=== PATIENT | male | born 1925 | race Caucasian/White ===

== ENCOUNTER 2016-10-30 21:07 | Inpatient (IN) | payer OTHER, MEDICARE ==
[~2016-10-30] VITALS: Ht 170.2 cm; Wt 81.6 kg
[~2016-10-30 21:07] MED LIST: ASPIRIN CHILDRE81 MG PO; BETAMETHASONE D1 CRE TOP; CEFUROXIME AXE500 MG PO; COUMADIN 2.5 M2.5 MG PO; COUMADIN 3 MG TA3 MG PO; COUMADIN 5 MG TA5 MG PO; ENALAPRIL PO; FUROSEMIDE40 M1 PO; HCT PO; HUMALOG 100U100 U/ML SC; HYDROCODONE/ACE1 TAB PO; KLOR-CON 10MEQ10 MEQ PO; LASIX 100M100 MG/10 IV; LASIX40 MG PO; LOPRESSOR 12.12.5 MG PO; LOPRESSOR 25MG25 MG PO; LOVENOX 8080 MG/0.8 SC; LOVENOX80 MG/0.8 SC; MAG-OX 400400 MG PO; MIRALAX17 GM PO; NOVOLOG 10300 UNITS/ SC; NOVOLOG100 U/ML SC; POTASSIUM CHLO10 ME3 PO; PRAVACHOL20 M2 PO; PRAVASTATIN SOD20 MG PO; PREDNISONE 10MG10 M1 PO; PREDNISONE5 M2; PREDNISONE5 MG PO; Prinivil PO; SPIRONOLACTONE50 MG PO; SYNTHROID50 MCG PO; TRADJENTA5 M1 PO; TRADJENTA5 MG PO; VICODIN 300 MG-1 TAB PO; VITAMIN B121000 MCG PO; VOLTAREN GEL1% TOP; WARFARIN SODIU2.5 MG PO; [UNRECOGNIZED DRUG - OTHER] PO
--- NOTE | 2016-10-30 21:11 | ED DYSPNEA/ASTHMA COMPLAINT ---
History of Present Illness General Chief Complaint: Fever Stated Complaint: BIBA FOR FEVER,CHILLS,PRODUCTIVE COUGH Source: family Exam Limitations: physical impairment Vital Signs & Intake/Output Vital Signs & Intake/Output Vital Signs Date Time Temp Pulse Resp B/P Pulse O2 O2 Flow FiO2 Ox Delivery Rate 11/01 0800 99 Room Air 11/01 0800 99.7 86 29 120/80 99 Room Air 11/01 0400 99 Room Air 11/01 0000 98.6 80 21 92/54 95 Room Air 11/01 0000 95 Room Air 10/31 2106 97 Room Air 10/31 2000 93 Room Air 10/31 1906 100.1 10/31 1600 97 Room Air Room Air 10/31 1600 100.2 71 32 104/73 97 Room Air Room Air 10/31 1220 Room Air 10/31 1200 100 Room Air Room Air / 1159 97 Room Air ED Intake and Output / 0000 / 1200 Intake Total 1628 200 Output Total 675 370 Balance 953 -170 Intake, IV 778 200 Intake, Oral 850 Number 1 Bowel Movements Output, Urine 675 370 Patient 180 lb Weight Allergies Coded Allergies: latex (Mild, RASH 12/02/15) Reconcile Medications Aspirin (Children's Aspirin) 81 MG TAB.CHEW 1 TAB PO DAILY HEART Furosemide 40 MG TAB 1.5 TAB PO DAILY DIURETIC (Reported) Levothyroxine (Synthroid) 0.025 MG TAB 1 TAB PO DAILY THYROID (Reported) Linagliptin (Tradjenta) 5 MG TAB 1 TAB PO DAILY DIABETES (Reported) Metoprolol Tartrate (Lopressor) 25 MG TABLET 1 TAB PO BID HEART Potassium Chloride [address] 1 TAB PO DAILY SUPPLEMENT (Reported) Pravastatin Sodium (Pravastatin) 20 MG TAB 1 TAB PO DAILY CHOLESTEROL ( Reported) Prednisone 5 MG TAB 1 TAB PO DAILY SUPPLEMENT (Reported) [Prinivil] 2.5 MG PO DAILY BLOOD PRESSURE 1 TAB DAILY Vitamin B Complex, Iron, And11 (Feogen) (Unknown Strength) SGL (Unknown Dose) PO DAILY SUPPLEMENT (Reported) Warfarin Sodium (Coumadin) 3 MG TAB 1 TAB PO DAILY BLOOD THINNER Triage Nurses Notes Reviewed? yes Onset: Gradual Duration: getting worse Timing: recent history Severity: moderate HPI: PT IS A 89 year old MALE with pmh significant for CHF,chronic A. Fib, history of atrial thrombus, [place] (2012) history of DVT s/p IVC filter (2003) on coumadin, HTN,HLD,pseudogout and NIDDM this history is limited due to Angolan speaking only however family members were present state that he has been feeling sick for the past week and which in the last 24 hours patient is noted to have fever productive cough generalized weakness and fatigue Denies any chest pain, pain, arm pain jaw pain nausea vomiting sore throat shortness of breath. Patient states that his lower extremities are stable. (BRENDA FLORES) Past History Travel History Traveled to [place] past 21 day No Medical History Any Pertinent Medical History? 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 Hx Contributory? No (BRENDA FLORES) Review of Systems Review of Systems Constitutional: Reports: no symptoms, see HPI, chills, malaise. EENTM: Reports: no symptoms. Respiratory: Reports: see HPI, cough. Cardiovascular: Reports: see HPI. Denies: chest pain. GI: Reports: no symptoms. Genitourinary: Reports: no symptoms. Musculoskeletal: Reports: no symptoms. Skin: Reports: no symptoms. Neurological/Psychological: Reports: no symptoms. Hematologic/Endocrine: Reports: no symptoms. Immunologic/Allergic: Reports: no symptoms. All Other Systems: Reviewed and Negative (BRENDA FLORES) Physical Exam Physical Exam General Appearance: no apparent distress, comfortable Respiratory: chest non-tender, no respiratory distress, rhonchi Comments: Well-developed well-nourished person in no acute distress HEENT: Normal EENT exam, Neck: Supple, no lymphadenopathy, normal range of motion without pain or tenderness Back: Nontender, no CVA tenderness Cardiovascular: IRRegular rate and rhythms no murmurs rubs or gallops, normal JVP Abdomen: Soft, nontender nondistended, no appreciable organomegaly. Normal bowel sounds. No ascites Extremity: +2 bilateral lower extremity pitting edema, no calf tenderness to palpation, normal and equal pulses. Neuro: Alert oriented motor sensory normal, cranial nerves II through XII grossly intact. Skin: No appreciable rash on exposed skin, skin is warm and dry. Psych: Mood and affect is normal, memory and judgment is normal. Core Measures ACS in differential dx? Yes Severe Sepsis Present: Yes BC x2: Yes Lactic Acid x2: Yes IV ABX Broad Spectrum: Yes NS/LR Started: Yes Septic Shock Present: Yes BC x2: Yes Lactic Acid: Yes IV ABX Broad Spectrum: Yes Focused Exam Completed: Yes NS/LR 30ml/kg w/in 3hrs: Yes (KEIRY ARTIS,BRENDA) Progress Differential Diagnosis: asthma, AMI, bronchitis, costochondritis, CHF, COPD, musculoskeletal pain, pericarditis, pulmonary embolism, pneumonia, pneumothorax, rib fracture, unstable angina Plan of Care: Orders Procedure Date/time Status PROTHROMBIN TIME 11/02 0500 Active ICU LAB BUNDLE 11/02 0500 Active CBC WITHOUT DIFFERENTIAL 11/02 0500 Active XRY-PORTABLE CHEST XRAY 11/01 0826 Active PROTHROMBIN TIME 11/01 0500 Complete PT Evaluate & Treat 11/01 UNK Active RT: Evaluation 10/31 1158 Active AEROSOL CHG 10/31 UNK Complete THERAPIST ORDERS 10/31 UNK Complete Current Medications Sig/Kenia Start time Last Medication Dose Stop Time Status Admin Cefuroxime Sodium 250 MG Q12 11/02 1000 AC (Ceftin) Metoprolol Tartrate 2.5 MG ONCE ONE 11/01 1015 UNVr (Lopressor) 11/01 1016 Metoprolol Tartrate 12.5 MG BID 11/01 1000 UNVr (Lopressor) Prednisone 20 MG DAILY 11/01 1000 AC 11/03 1001 Guaifenesin 10 ML Q6P PRN 10/31 0245 AC (Robitussin) Laboratory Tests 11/01/16 0420: Anion Gap 7, Estimated GFR > 60, Glucose 103 H, Calcium 8.6, Phosphorus 2.7, Magnesium 1.9, Total Bilirubin 0.8, AST 48, ALT 63, Albumin 2.8 L, PT 38.2 H, INR 3.69 H, CBC w Diff NO MAN DIFF REQ, RBC 3.53 L, MCV 96.1 H, MCH 32.1 H, RDW 15.0 H, MPV 9.3, Gran % 77.2 H, Lymphocytes % 13.8 L, Monocytes % 7.4, Eosinophils % 1.2, Basophils % 0.4, Absolute Granulocytes 4.2, Absolute Lymphocytes 0.8 L, Absolute Monocytes 0.4, Absolute Eosinophils 0.1, Absolute Basophils 0, PUBS MCHC 33.4 10/31/16 1115: Troponin I 0.68 *H Microbiology 10/31 1005 LOWER RESP: Respiratory Culture - RES 10/31 1005 LOWER RESP: Gram Stain - RES Due to history of present illness and exam findings patient has concerns of upper respiratory infection-bronchitis. Patient noted to have fever lactic acidosis and his rhonchi noted on exam patient was given IV antibiotics. It is noted through previous labs the patient has a chronically elevated troponin Blood cultures pending. Patient's last echocardiogram was April 2015 noted to be 45-50% EF patient was given 1 L of IV fluid for hypotension noted in the ER Patient still had no response of hypotension in which he was administered 2 peripheral line IV fluid resuscitation Even though patient does have a history of CHF blood pressure improvement was imperative at this point however patient had no response of hypotension in which a central line then was placed. I discussed risk and benefit with son who signed consent form. I placed central line to the right femoral vein with no complications. DISCUSSED ADMISSION WITH DR. MARTIN WHO EVALUATED PT (KEIRY ARTIS,BRENDA) Diagnostic Imaging: Viewed by Me: Radiology Read. Radiology Impression: SEE COMMENTS Initial ED EKG: AFIB 100 BPM MULTIFORM VENTRICULAR PREMATURE COMPLEX, LEFT BUNDLE BRANCH BLOCK Comments: PATIENT: YESSY HERNANDEZ PRESENT AGE: 89 PATIENT ACCOUNT NO: [id number] : [birth year] LOCATION: [facility] ORDERING PHYSICIAN: BRENDA ARTIS SERVICE DATE: 10/30/16 EXAM TYPE: RAD - XRY-CHEST XRAY, PA AND LATERAL EXAMINATION: XR CHEST CLINICAL INFORMATION: Shortness of breath. Cough, fever. COMPARISON: Chest x-ray 05/01/2015. TECHNIQUE: 2 views of the chest were obtained. FINDINGS: Heart size is enlarged. There is calcification of the thoracic aorta. Lung volume is low. This accentuates crowding of the bronchovascular markings which are mildly prominent. The prominence of the vessels is less than was seen on the prior chest x-ray of 05/01/2015. Could be mild congestive heart failure. Haziness at the right lung base with blunting of the posterior costophrenic angle consistent with a small right pleural effusion. No dense consolidation. Multilevel degenerative change of the dorsal spine. IMPRESSION: 1. Low lung volume with prominence of the central hilar vessels. Could be mild congestive heart failure. 2. Small right pleural effusion. 3. No dense consolidation. (BRENDA FLORES) ED Sepsis Exam Date of Focused Sepsis Exam: 10/30/16 Time of Focused Sepsis Exam: 2326 Sepsis Cardiac Exam: AFIB Sepsis Resp Exam: Ronchi Sepsis Cap Refill Exam: <2 Sec Sepsis Peripheral Pulse Exam: Normal Sepsis Peripheral Pulse Location: Radial Sepsis Skin Color Exam: Normal for Ethnicity Skin Temp/Moisture Exam: Warm/Dry (BRENDA FLORES) Departure Departure Disposition: STILL A PATIENT Condition: Critical Clinical Impression Primary Impression: Bronchitis Secondary Impressions: CHF (congestive heart failure), Septic shock Referrals: JULIETH NEW MD (PCP/Family) Departure Forms: Customer Survey General Discharge Information Admission Note Spoke With: PAUL CHAPMAN MD Documentation of Exam: Documentation of any treatments & extenuating circumstances including Concerns Regarding Discharge (functional status, medication knowledge or non-compliance, living conditions, etc.) that warrant an admission rather than observation: [ Discussed patient with Dr. Chapman who agrees with ICU admission for concerns of bronchitis and CHF exacerbation. Patient requires IV antibiotics, IV fluid resuscitation repeat labs, blood cultures currently pending and IV diuresis. Outpatient treatment at this time would be medically harmful.] (BRENDA FLORES) PA/BASKET MENDER Co-Sign Statement Statement: ED Attending supervision documentation- [X] I saw and evaluated the patient. I have also reviewed all the pertinent lab results and diagnostic results. I agree with the findings and the plan of care as documented in the PA's/BASKET MENDER's documentation. [X] I have reviewed the ED Record and agree with the PA's/BASKET MENDER's documentation. [] Additions or exceptions (if any) to the PAs/BASKET MENDER's note and plan are summarized below: [] (MARIO DALTON,YOUSIF Andujar) Procedures Central Line Central Line Lumen: triple Central Line Procedure: Yes: bentadine prep?, sterile drapes applied, sterile dressing applied. Central Line Position: femoral (R) Anesthesia: lidocaine 1% CC's of Anesthesia: 10 Complications: none Central Line Post Position: sutured, good blood return Progress: Patient tolerated central line placement well (BRENDA FLORES) Critical Care Note Critical Care Note Critical Care Time: 75-104 min (BRENDA FLORES) angle consistent with a small right pleural effusion. No dense consolidation. Multilevel degenerative change of the dorsal spine. IMPRESSION: 1. Low lung volume with prominence of the central hilar vessels. Could be mild congestive heart failure. 2. Small right pleural effusion. 3. No dense consolidation. (BRENDA FLORES) ED Sepsis Exam Date of Focused Sepsis Exam: 10/30/16 Time of Focused Sepsis Exam: 2326 Sepsis Cardiac Exam: AFIB Sepsis Resp Exam: Ronchi Sepsis Cap Refill Exam: <2 Sec Sepsis Peripheral Pulse Exam: Normal Sepsis Peripheral Pulse Location: Radial Sepsis Skin Color Exam: Normal for Ethnicity Skin Temp/Moisture Exam: Warm/Dry (BRENDA FLORES) Departure Departure Disposition: STILL A PATIENT Condition: Stable Clinical Impression Primary Impression: Bronchitis Secondary Impressions: CHF (congestive heart failure), Septic shock Referrals: JULIETH NEW MD (PCP/Family) Departure Forms: Customer Survey General Discharge Information Admission Note Spoke With: PAUL CHAPMAN MD Documentation of Exam: Documentation of any treatments & extenuating circumstances including Concerns Regarding Discharge (functional status, medication knowledge or non-compliance, living conditions, etc.) that warrant an admission rather than observation: [ Discussed patient with Dr. Chapman who agrees with ICU admission for concerns of bronchitis and CHF exacerbation. Patient requires IV antibiotics, IV fluid resuscitation repeat labs, blood cultures currently pending and IV diuresis. Outpatient treatment at this time would be medically harmful.] (BRENDA FLORES) PA/BASKET MENDER Co-Sign Statement Statement: ED Attending supervision documentation- [X] I saw and evaluated the patient. I have also reviewed all the pertinent lab results and diagnostic results. I agree with the findings and the plan of care as documented in the PA's/BASKET MENDER's documentation. [X] I have reviewed the ED Record and agree with the PA's/BASKET MENDER's documentation. [] Additions or exceptions (if any) to the PAs/BASKET MENDER's note and plan are summarized below: [] (MARIO DALTON,YOUSIF Andujar) Procedures Central Line Central Line Lumen: triple Central Line Procedure: Yes: bentadine prep?, sterile drapes applied, sterile dressing applied. Central Line Position: femoral (R) Anesthesia: lidocaine 1% CC's of Anesthesia: 10 Complications: none Central Line Post Position: sutured, good blood return Progress: Patient tolerated central line placement well (BRENDA FLORES) Critical Care Note Critical Care Note Critical Care Time: 30-74 min (BRENDA FLORES)
--- NOTE | 2016-10-30 21:20 | NUR ---
PT BIBA FROM HOME. PER EMS, PT HAS BEEN EXPERIENCING FEVER AND CHILLS X1 WEEK. PT HAS HX OF CHF AND +4 PEDAL EDEMA WHICH IS BASELINE. UPON ED ARRIVAL, PT ALERT AND ORIENTED. NO SOB NOTED, PT DENIES PAIN. TEMP 100.2 AND PT HAS A PRODUCTIVE COUGH. PT PLACED ON HEART MONITOR. CHANDRA RICCI AT BEDSIDE FOR EVAL. PT IS PORTUGESE SPEAKING, FAMILY REMAINS AT BEDSIDE.
[2016-10-30 21:40] LABS: ABSOLUTE BASOPHIL COUNT 0 /CUMM (0.0-0.2); ABSOLUTE EOSINOPHIL COUNT 0 /CUMM (0.0-0.7); ABSOLUTE GRANULOCYTE CT 5.6 /CUMM (1.4-6.5); ABSOLUTE LYMPH COUNT 0.5 /CUMM (1.2-3.4); ABSOLUTE MONOCYTE COUNT 0.4 /CUMM (0.10-0.60); BASOPHIL % 0.1 % (0.0-2.0); EOSINOPHIL % 0.1 % (0-5); MEAN CORPUSCULAR HGB 31.8 PG (27.0-31.0); MEAN CORPUSCULAR HGB CONC 33.1 G/DL (33.0-37.0); MEAN CORPUSCULAR VOLUME 96.3 FL (80.0-94.0); MEAN PLATELET VOLUME 8.8 FL (7.4-10.4); PLATELET COUNT 95 /CUMM (130-400); RBC DISTRIBUTION WIDTH 14.7 % (11.5-14.5); RED BLOOD CELL CT 3.74 /CUMM (4.70-6.10); WHITE BLOOD CELL COUNT 6.5 /CUMM (4.8-10.8)
[2016-10-30 21:48] LABS: PT 28.7 SEC (9.4-12.5); PTT 32 SEC (25-37)
--- NOTE | 2016-10-30 21:51 | NUR ---
LABS DRAWN AND SENT BY THIS MST (BLUE,2 SST,LAV,CAPONE,1ST SET OF B/C)
[2016-10-30 21:54] LABS: GRANULOCYTE % 86.2 % (42.2-75.2)
--- NOTE | 2016-10-30 22:00 | NUR ---
PT TAKEN TO XRAY AT THIS TIME VIA STRETCHER.
--- NOTE | 2016-10-30 22:17 | NUR ---
CRITICAL TEST RESULTS [id number] LOVE HERNANDEZIO 89 M TESTS AND RESULTS: TROPONIN 0.44 Results received and read back by: YVON ARCEO Results received date and time: 10/30/16 2376 The following provider was notified of the results, and read the results back: CHANDRA RICCI Notified date and time: 10/30/16 at 2213
--- NOTE | 2016-10-30 22:25 | NUR ---
INFLUENZA SWAB SENT TO LAB. CHANDRA RICCI AT BEDSIDE.
--- NOTE | 2016-10-30 22:31 | RADIOLOGY REPORT ---
EXAMINATION: XR CHEST CLINICAL INFORMATION: Shortness of breath. Cough, fever. COMPARISON: Chest x-ray 05/01/2015. TECHNIQUE: 2 views of the chest were obtained. FINDINGS: Heart size is enlarged. There is calcification of the thoracic aorta. Lung volume is low. This accentuates crowding of the bronchovascular markings which are mildly prominent. The prominence of the vessels is less than was seen on the prior chest x-ray of 05/01/2015. Could be mild congestive heart failure. Haziness at the right lung base with blunting of the posterior costophrenic angle consistent with a small right pleural effusion. No dense consolidation. Multilevel degenerative change of the dorsal spine. IMPRESSION: 1. Low lung volume with prominence of the central hilar vessels. Could be mild congestive heart failure. 2. Small right pleural effusion. 3. No dense consolidation.
--- NOTE | 2016-10-30 23:35 | NUR ---
MANUAL BP 88/50. CHANDRA RICCI AWARE. HOLDING OFF ON ADMINISTERING LASIX AT THIS TIME.
--- NOTE | 2016-10-31 00:33 | NUR ---
MANUAL BP 76/38. PA KEIRY AWARE.
--- NOTE | 2016-10-31 01:18 | NUR ---
PT'S BLOOD DRAWN LACTIC AT 0116 AND SENT TO LAB
--- NOTE | 2016-10-31 01:42 | NUR ---
CHANDRA RICCI AT BEDSIDE FOR CENTRAL LINE ESTABLISHMENT.
--- NOTE | 2016-10-31 01:49 | NUR ---
DR MARTIN AT BEDSIDE. CHANDRA RICCI REMAINS AT BEDSIDE.
--- NOTE | 2016-10-31 02:00 | NUR ---
CENTRAL LINE ESTABLISHED IN [place] BY CHANDRA RICCI.
--- NOTE | 2016-10-31 02:29 | History & Physical ---
See Addendum MANDIE DALTONLORETTA 10/31/16 0228: General Information and HPI History of Present Illness: 89-year-old man with past medical history significant for congestive heart failure, atrial fibrillation, and myocardial infarction, seen for evaluation of fever, chills, and reductive cough since Saturday (10/27/16). Patient is mainly Greek speaking and is unable to communicate. His son and power of arson investigator Michi is present at bedside offering translation in addition to offering collateral information about his father. Patient has reportedly been feeling feverish with chills and an associated productive cough of yellow/ bloody sputum over the past few days but otherwise has felt fine with no decrease in his activity level. Over the past 24 hours patient has been viewed by family members to have gotten acutely worse with generalized fatigue, decreased oral intake, and weakness and new sore throat. Patient was taken to the [facility] ED for further evaluation. Presently patient feels well but admits to persistent fever, chills, new headache but otherwise denies any blurred/double vision, dizziness/ lightheadedness, chest pain, palpitations, shortness of breath, nausea, vomiting , diarrhea. PMHx: Congestive heart failure attending CHF clinic, atrial fibrillation, DVT/PE status post IVC filter on Coumadin, myocardial infarction (2012), hypertension, hyperlipidemia, pseudogout, [id number] diabetes mellitus Allergies/Medications Allergies: Coded Allergies: latex (Mild, RASH 12/02/15) Past History Travel History Traveled to [place] past 21 day No Medical History Neurological: NONE EENT: NONE Cardiovascular: AFIB, hypertension Respiratory: CHF/FLUID Gastrointestinal: NONE Hepatic: NONE Renal: NONE Musculoskeletal: osteoarthritis Psychiatric: NONE Endocrine: diabetes Blood Disorders: DVT, PE Cancer(s): NONE MATERIAL MAN/Reproductive: NONE Other Medical Hx: Multiple DVT history History of MRSA: No History of VRE: No History of CDIFF: No Surgical History Surgical History: MARITZA FILTER Past Family/Social History Family History Relations & Conditions if any not significant DAUGHTER (SEIZURE). Psychosocial History Who Do You Live With? spouse Services at Home: Nursing ETOH Use: denies use Illicit Drug Use: denies illicit drug use Functional Ability ADLs Independent: dressing, eating, toileting, bathing. Ambulation: cane, walker Review of Systems Review of Systems Constitutional: Reports: see HPI. Exam & Diagnostic Data Last 24 Hrs of Vital Signs/I&O Vital Signs Date Time Temp Pulse Resp B/P Pulse O2 O2 Flow FiO2 Ox Delivery Rate 10/31 0432 95 Room Air 10/31 0345 98.4 64 16 78/48 95 Room Air 10/31 0241 66 18 76/50 08 0112 80/48 08 0033 76/38 10/30 2334 87 88/50 10/30 2213 99.6 100 18 96/58 96 Room Air 10/30 2155 100.2 10/30 2113 100.2 73 18 106/56 94 Room Air Intake & Output 10/31 0800 10/31 0000 10/30 1600 Intake Total 0 Output Total Balance 0 Intake, Oral 0 Patient 81.647 kg 79.379 kg Weight Physical Exam General Appearance Alert, Cooperative, Mild Distress Skin Chronic lower extremity skin changes HEENT Atraumatic, PERRLA, EOMI, Mucous Membr. moist/pink Neck Supple, +2 Carotid Pulse wo Bruit, Elevated JVD Cardiovascular Normal S1, Normal S2, Irregular rate Lungs Extensive rhonchi with bibasilar crackles Abdomen Normal Bowel Sounds, Soft, No Tenderness, No Hepatospenomegaly, No Masses Neurological Normal Tone, Cranial Nerves 3-12 NL Extremities 4+ bilateral lower extremity edema Vascular Normal Pulses, Pulses Symmetrical Last 24 Hrs of Labs/Gregorio: Laboratory Tests 10/31/16 0440: Anion Gap 9, Estimated GFR 52 L, Glucose 115 H, Calcium 7.9 L, Phosphorus 3.1 , Magnesium 1.7, Total Bilirubin 0.7, AST 73 H, ALT 72, Troponin I 0.88 *H, Albumin 2.9 L, Cortisol AM Sample Pending, PT 33.4 H, INR 3.22 H, CBC w Diff NO MAN DIFF REQ, RBC 3.56 L, MCV 96.9 H, MCH 32.5 H, RDW 14.6 H, MPV 9.0, Gran % 78.6 H, Lymphocytes % 13.3 L, Monocytes % 7.7, Eosinophils % 0.1, Basophils % 0.3, Absolute Granulocytes 5.5, Absolute Lymphocytes 0.9 L, Absolute Monocytes 0.5, Absolute Eosinophils 0, Absolute Basophils 0, PUBS MCHC 33.6 10/31/16 0256: Urine Color YEL, Urine Clarity CLEAR, Urine pH 6.0, Ur Specific [place] 1.015, Urine Protein NEG, Urine Ketones NEG, Urine Nitrite NEG, Urine Bilirubin NEG, Urine Urobilinogen 0.2, Ur Leukocyte Esterase NEG, Ur Microscopic EXAM NOT REQUIRED, Urine Hemoglobin NEG, Urine Glucose NEG 10/31/16 0256: Ur Random Creatinine 79.2, Ur Random Sodium 23 L, Ur Random Potassium 46.3, Fraction Sodium Excret 0.3 10/31/16 0116: Lactic Acid 1.2 10/30/162126: Anion Gap 11, Estimated GFR 44 L, BUN/Creatinine Ratio 22.7, Glucose 219 H, Lactic Acid 2.6 H, Calcium 8.9, Total Bilirubin 0.8, AST 47, ALT 54, Alkaline Phosphatase 61, Troponin I 0.44 *H, Zid-R-Mvfhawsubup Pept 9550 H, Total Protein 5.5 L, Albumin 3.4 L, Globulin 2.1, Albumin/Globulin Ratio 1.6, TSH 2.110, Free T4 1.81, PT 28.7 H, INR 2.76 H, APTT 32, CBC w Diff NO MAN DIFF REQ, RBC 3.74 L, MCV 96.3 H, MCH 31.8 H, RDW 14.7 H, MPV 8.8, Gran % 86.2 H , Lymphocytes % 8.2 L, Monocytes % 5.4, Eosinophils % 0.1, Basophils % 0.1, Absolute Granulocytes 5.6, Absolute Lymphocytes 0.5 L, Absolute Monocytes 0.4, Absolute Eosinophils 0, Absolute Basophils 0, PUBS MCHC 33.1 Microbiology 10/31 0500 UPPER RESP: Surveillance Culture - COLB 10/31 499 GI: Surveillance Culture - COLB 11/01 255 URINE ROUT: Legionella Antigen - COMP 11/01 255 URINE ROUT: Streptococcus pneumoniae Antigen (M - COMP 10/30 2214 NASOPHARYN: Influenza Virus A & B Rapid Smear - COMP 10/31 2151 BLOOD: Blood Culture - RECD 10/30 2126 BLOOD: Blood Culture - RECD 10/30 2113 LOWER RESP: Respiratory Culture - COLB 10/30 2113 LOWER RESP: Gram Stain - COLB Diagnostic Data EKG Results Atrial Fibrillation HR 100 ND 128 QTc 485 LBBB CXR Results IMPRESSION: 1. Low lung volume with prominence of the central hilar vessels. Could be mild congestive heart failure. 2. Small right pleural effusion. 3. No dense consolidation. Assessment/Plan Assessment: 89-year-old man with multiple medical problems seen for evaluation of fever, chills, productive cough since Saturday with new weakness/malaise/sore throat in the past 24 hours. Vital signs on initial evaluation demonstrate temp 100.2, HR 73, RR 18, BP 106/ 56, O2 94% on room air. Physical examination demonstrates an elderly man in mild distress with extensive rhonchi and bibasilar crackles with jugular venous distention and 4+ bilateral lower extremity edema. Lab work was remarkable for WBC 6.5, Hgb/HCT 11.9/36.0, sodium 134, potassium 4.0, BUN/ creatinine 34/1.5, glucose 219, lactic acid 2.6, troponin 0.44, LFTs within normal limits, BNP 9550, TSH 2.110, free T4 1 0.81. Chest x-ray demonstrates low lung volumes with prominence of the central hilar vessels possibly suggestive of mild congestive heart failure with a small right pleural effusion and no dense consolidation. EKG demonstrates atrial fibrillation with left bundle branch block. Acute bronchitis with septic shock/congestive heart failure/elevated troponin Patient meets criteria for sepsis with tachycardia, tachypnea and reported fever. Chest x-ray and physical examination suggest source of infection localized to the upper airway. Lactic acid elevated to 2.6. Patient received 4 L of normal saline intravenous fluid resuscitation and remained persistently hypotensive for which a femoral triple-lumen catheter was placed. Azithromycin and ceftriaxone were given in the ED after cultures were taken. Legionella/ strep/rapid flu negative. Troponins are chronically elevated. -Intensive care unit -Monitor vital signs, maintain systolic blood pressure > 90 -Strict ins and outs, daily weights -Monitor fluid volume status given history of CHF -Trend lactic acid until normal -Trend troponin/EKG -Echocardiogram -Azithromycin 500 mg IV daily -Ceftriaxone 1 g IV daily -Guaifenesin 10 mL by mouth every 6 hours as needed for cough -Blood/urine cultures -Cardiology consult with Dr. Ventura in morning -Confirm CMR in morning -Follow-up bilateral lower extremity ultrasound Dcg-osniclq-pvwoqizmu diabetes mellitus -Accu-Cheks 3 times a day before meals/at bedtime -Hold oral hypoglycemics -NovoLog sliding scale insulin Hyperlipidemia-pravastatin 20 mg by mouth daily Hypertension-hold blood pressure medications until stable Coronary artery disease-Aspirin 81 mg by mouth daily Hypothyroidism-levothyroxin 25 MCG by mouth daily History of DVT/PE-daily INR, dose Coumadin accordingly Pain plan-acetaminophen Diet-diabetic diet DVT prophylaxis-on Coumadin CODE STATUS-full code As Ranked By This Provider Problem List: 1. Sepsis 2. Bronchitis 3. Septic shock Core Measures/Miscellaneous Acute Coronary Syndrome ACS Diagnosis: No Cerebrovascular Accident CVA/TIA Diagnosis: No Congestive Heart Failure CHF Diagnosis: No Venous Thromboembolism VTE Risk Factors: Acute medical illness, Age > 40, CHF or Resp failure No [facility] VTE prophylaxis d/t: LE Edema No VTE Pharm Prophylaxis d/t: No contraindications VTE Diagnosis: No VTE Type: NONE VTE Confirmed by (Test): NONE Severe Sepsis Severe Sepsis Present: Yes BC x2: Yes Lactic Acid x2: Yes IV ABX Broad Spectrum: Yes NS/LR Started: Yes Septic Shock Septic Shock Present: Yes BC x2: Yes Lactic Acid: Yes IV ABX Broad Spectrum: Yes Focused Exam Completed: Yes NS/LR 30ml/kg w/in 3hrs: Yes IV Vasopressors started: Yes Miscellaneous Documentation Attending Case Discussed With: OBI VENTURA MD Primary Care Physician: JULIETH NEW MD Patient sees these Specialists MD Obi Gomes MD Dr. Shonda of [place] (PCP) Level of Patient Care: Critical Care (CRI) Consults Needed: Consulting Specialty: Cardiology SAYDA GUZMAN 10/31/16 0552: General Information and HPI Allergies/Medications Home Med list Furosemide 40 MG TABLET 1 TAB PO BID FLUID RETENTION (Reported) Levothyroxine Sodium (Synthroid) 50 MCG TABLET 1 TAB PO DAILY THYROID PROBLEMS (Reported) Linagliptin (Tradjenta) 5 MG TAB 1 TAB PO DAILY DIABETES (Reported) Metoprolol Tartrate 25 MG TABLET 0.5 TAB PO BID HEART HEALTH (Reported) Potassium Chloride [address] 1 TAB PO DAILY SUPPLEMENT (Reported) Pravastatin Sodium (Pravastatin) 20 MG TAB 1 TAB PO DAILY CHOLESTEROL ( Reported) Prednisone 5 MG TAB 1 TAB PO DAILY SUPPLEMENT (Reported) Prednisone 5 MG TABLET 0 PO DAILY ANTI-INFLAMMATORY On Take 11/04-11/05 4 tabs per day 11/06-11/08 2 tabs per day 11/09- 1 tab per day Then Continue 1 tab per day [Prinivil] 2.5 MG PO DAILY BLOOD PRESSURE 1 TAB DAILY Vitamin B Complex, Iron, And11 (Feogen) (Unknown Strength) SGL (Unknown Dose) PO DAILY SUPPLEMENT (Reported) Warfarin Sodium (Coumadin) 5 MG TABLET 1 TAB PO SAT BLOOD THINNER (Reported) Warfarin Sodium (Coumadin) 5 MG TABLET 1 TAB PO QSUN BLOOD THINNER (Reported) Warfarin Sodium (Coumadin) 2.5 MG TABLET 1 TAB PO Saturday BLOOD THINNER (Reported) Resident Review Statement Resident Statement: examined this patient, discussed with internetworking technician, amended to note Other Findings: 89-year-old man with past medical history of CHF,,afib, dvt/pe with IVC filter chronic leg swelling, hyperlipidemia, hypertension, diabetes,Pseudgout, Hypothyroidism, was brought by ambulance by his son with chief complaint of not feeling well, weak, coughing and fever and chills. Patient is a poor to give this pain is gentleman and information was translated and also obtained from his son. Port having cough and shortness of breath since Saturday with exertional dysnea, got worse today to the point that patient was not been able to walk in addition to having fever and chills and blood tinged sputum. Patient denies any chest pain, nausea, vomiting, urinary symptoms, diarrhea, constipation, abdominal pain. He does report of sore throat and patient's son was having positive for strep throat treated with antibiotic. In the ED patient was noted to have hypotension and 4 L of normal saline was infused however patient blood pressure was a still under 90 and femoral line was placed and patient was supposed to put on low-dose Levophed however his blood pressure increased to 100 without being on pressors. Details of vital signs are noted above. Physical exam patient was alert and oriented possible JVD Lungs bilateral rhonchi Heart S1 and S2 normal abdomen Nontender ext severe bilateral edema with varices, No significant sign of cellulitis Initially possible 2.5 and subsequently getting normalized, cr 1.5, Troponig 0.44(always elevated in our lab records), hg 11.9, BNP 9950, INR 2.76,PLT 94 ( last time 104) Negative for rapid flu EKG Atrial Fibrillation HR 100 ND 128 QTc 485 LBBB CXR 1. Low lung vo lume with prominence of the central hilar vessels. Could be mild congestive heart failure. 2. Small right pleural effusion. 3. No dense consolidation. Assessment and plan #severe Sepsis due to pneumonia/bronchitis/NOELLE * Admit to ICU * Keep O2 saturation over 92% * Put the patient on IV ceftriaxone and IV azithromycin * Blood cultures 2, sputum culture * Robusstasin for cough * Check urine Legionella and strep antigen * Restart levophed if the patient blood pressure drops below 90 mmhg * hold metoprol and Lasix #Bilateral leg edema/CHF/positive trops -ekg tropoins times 3 -echo in the morning - already aware -U/s of legs to rule out DVT Diabetes -Hold oral medications -Diabetic diet, fingersticks, sliding scale insulin #afib/PE -Dose Coumadin per daily INR -hold Metoprolol for now #anemia, low plt -watch for bleeding -CBC daily #NOELLE -hold IV hydration for now -hold lasix for now #pseudgout?/ Hypothrosidim -check cortisol -check free t4, TSH -continue levothyroxine Full code per patient and per his son, diabetic diet, DVT prophylaxis mechanical and warfarin, Tylenol for pain please confirm the CMR ADAMA DALTON,FARZANEH N 10/31/16 5658: Attending MD Review Statement Attending Statement Attending MD Statement: examined this patient, discuss w/resident/PA/DERIVATIVES TRADER, agreed w/resident/PA/DERIVATIVES TRADER, discussed with family, reviewed EMR data (avail), discussed with nursing, discussed with case mgmt, reviewed images, amended to note Attending Assessment/Plan: 89 year old male well known to me with history of AF, venous insufficienc, chronic LE edema, etc. Here now with congestion and evidence of acute bronchitis. There is no evidence of overt CHF and his LE edema is chronic and he has had multiple recent visits to [facility] CHF clinic and has been stable. Recommendations: - COntinue antibiotics. - HOld diuretics for now. - Restart again in 24 - 36 hours. - Appreciate Dr Leon's input. - FOllowup echo pending.
--- NOTE | 2016-10-31 02:40 | NUR ---
PTS BP CHECKED MANUALLY 76/50, PINKED EDGE SEWING MACHINE OPERATOR THOMAS NG
--- NOTE | 2016-10-31 02:41 | NUR ---
PT'S ASSIGNMENT 109
--- NOTE | 2016-10-31 02:44 | NUR ---
THROAT CULTURE AND QUICK STREP COLLECTED AND SENT BY THIS RN
--- NOTE | 2016-10-31 03:01 | NUR ---
16FR HUERTA PLACED USING STERILE TECHNIQUE. OUTPUT OF 200ML CLEAR YELLOW URINE. WILL CONTINUE TO MONITOR.
--- NOTE | 2016-10-31 03:26 | NUR ---
HOUSESTAFF LORETTA LOCKWOOD PAGED REGARDING PT POC. MANDIE STATES HE WILL COME TO ED TO FURTHER EXPLAIN.
--- NOTE | 2016-10-31 03:38 | NUR ---
PHARMACY CALLED FOR MED. PHARMACISTS STATES MED WILL NOT BE READY FOR ABOUT 20 MINUTES.
--- NOTE | 2016-10-31 03:45 | NUR ---
REPORT GIVEN TO LAZARO ON ICU. BED IS READY.
[2016-10-31 05:21] LABS: PT 33.4 SEC (9.4-12.5)
[2016-10-31 05:22] LABS: ABSOLUTE BASOPHIL COUNT 0 /CUMM (0.0-0.2); ABSOLUTE EOSINOPHIL COUNT 0 /CUMM (0.0-0.7); ABSOLUTE GRANULOCYTE CT 5.5 /CUMM (1.4-6.5); ABSOLUTE LYMPH COUNT 0.9 /CUMM (1.2-3.4); ABSOLUTE MONOCYTE COUNT 0.5 /CUMM (0.10-0.60); BASOPHIL % 0.3 % (0.0-2.0); EOSINOPHIL % 0.1 % (0-5); GRANULOCYTE % 78.6 % (42.2-75.2); HEMATOCRIT 34.5 % (42-52); MEAN CORPUSCULAR HGB 32.5 PG (27.0-31.0); MEAN CORPUSCULAR HGB CONC 33.6 G/DL (33.0-37.0); MEAN CORPUSCULAR VOLUME 96.9 FL (80.0-94.0); PLATELET COUNT 74 /CUMM (130-400); RBC DISTRIBUTION WIDTH 14.6 % (11.5-14.5); RED BLOOD CELL CT 3.56 /CUMM (4.70-6.10)
[2016-10-31 08:00] VITALS: BP 94/58
--- NOTE | 2016-10-31 08:13 | Cons- CRCU ---
General Information and HPI Consulting Request Source of Information: patient, family, old records Allergies/Medications Allergies: Coded Allergies: latex (Mild, RASH 12/02/15) Home Med List: Aspirin (Children's Aspirin) 81 MG TAB.CHEW 1 TAB PO DAILY HEART Furosemide 40 MG TAB 1.5 TAB PO DAILY DIURETIC (Reported) Levothyroxine (Synthroid) 0.025 MG TAB 1 TAB PO DAILY THYROID (Reported) Linagliptin (Tradjenta) 5 MG TAB 1 TAB PO DAILY DIABETES (Reported) Metoprolol Tartrate (Lopressor) 25 MG TABLET 1 TAB PO BID HEART Potassium Chloride [address] 1 TAB PO DAILY SUPPLEMENT (Reported) Pravastatin Sodium (Pravastatin) 20 MG TAB 1 TAB PO DAILY CHOLESTEROL ( Reported) Prednisone 5 MG TAB 1 TAB PO DAILY SUPPLEMENT (Reported) [Prinivil] 2.5 MG PO DAILY BLOOD PRESSURE 1 TAB DAILY Vitamin B Complex, Iron, And11 (Feogen) (Unknown Strength) SGL (Unknown Dose) PO DAILY SUPPLEMENT (Reported) Warfarin Sodium (Coumadin) 3 MG TAB 1 TAB PO DAILY BLOOD THINNER Past History Travel History Traveled to [place] past 21 day No Medical History Blood Transfusion Hx: Yes Neurological: NONE EENT: NONE Cardiovascular: AFIB, hypertension Respiratory: CHF/FLUID Gastrointestinal: NONE Hepatic: NONE Renal: NONE Musculoskeletal: osteoarthritis Psychiatric: NONE Endocrine: diabetes Blood Disorders: DVT, PE Cancer(s): NONE FINE ARTS MODEL/Reproductive: NONE Other Medical Hx: Multiple DVT history Surgical History Surgical History: MARITZA FILTER Family History Relations & Conditions If Any: not significant DAUGHTER (SEIZURE). Psychosocial History Where Do You Live? Home Who Do You Live With? spouse Services at Home: Nursing Smoking Status: Former Smoker ETOH Use: denies use Illicit Drug Use: denies illicit drug use Functional Ability ADLs Independent: dressing, eating, toileting, bathing. Ambulation: cane, walker Assessment/Plan Consult Acknowledgment - Thank you for your consult request.
--- NOTE | 2016-10-31 09:00 | NUR ---
REC'D THE PT SITTING UP IN BED TALKING WITH HIS SON. PT IS PORTUGESE SPEAKING WITH SON ACTING TRASLATOR. PER THE SON THE PT IS A&OX3 AND ONLY C/O 1/0 GENERAL ACHINESS. GUAJARDO, ALBEIT MOVES THE BLE SLOWLY SECONDARY TO 3+ PITTIN EDEMA. PT IS IN AN AFIB WITH MULTIFOCAL PVC'S. PT IS TO RECEIVE BOTH KDUR 40MEQ AND MAG OX 400MG PO FOR A K+ OF 3.7 AND A MG+ OF 1.7. NS AT 100ML/HR INFUSING VIA THE WHITE PORT OF THE RG TLC. OLD BLOOD NOTED TO INSERTION SITE. THE PT'S BP AT THIS TIME VIA THE AUTOCUFF IS 86/54 AND MANUALLY IT IS 116/80. PT IS AFEBRILE WITH A TEMP OF 98.0 WITH THE TEMPORAL ARTERY THERMOMENTER. JOSE BS WITH RHONCHI THROUGHOUT WELL SCATTERED CRACKLES. O2 IS 96% ON ROOM AIR. PT IS TACHYPNEIC WITH A RR OF 22 AND HAS A COUGH PRODUCTIVE OF MOD AMTS OF THICK SALTER SPUTUM. ABD IS SOFT WITH NORMOACTIVE BOWEL SOUNDS. HUERTA IN PLACE DRAINING CLEAR YELLOW URINE.
--- NOTE | 2016-10-31 09:41 | Cons- CRCU ---
General Information and HPI Consulting Request Date of Consult: 10/31/16 Requested By: med team History of Present Illness: 89-year-old man with past medical history significant for congestive heart failure, atrial fibrillation, and myocardial infarction, seen for evaluation of fever, chills, and reductive cough since Saturday (10/27/16). Patient is mainly Beninese speaking and is unable to communicate. His son and power of admitted attorneys Michi is present at bedside offering translation in addition to offering collateral information about his father. Patient has reportedly been feeling feverish with chills and an associated productive cough of yellow/ bloody sputum over the past few days but otherwise has felt fine with no decrease in his activity level. Over the past 24 hours patient has been viewed by family members to have gotten acutely worse with generalized fatigue, decreased oral intake, and weakness and new sore throat. Presently patient feels well but admits to persistent fever, chills, new headache but otherwise denies any blurred/double vision, dizziness/ lightheadedness, chest pain, palpitations, shortness of breath, nausea, vomiting , diarrhea. He does have previous history of DVT and PE and IVC filter. He is onwarfarin. And his INR has been stable. He does have chronic venous insufficiency of his lower extremity. In the emergency room he was started to be hypotensive and the did receive a femoral line and the day brought him to the ICU because he would've needed vasopressors. However since he came in here he has not had any need for vasopressors. When I saw him he was laying comfortably in bed, saturating 97% on room air. He was coughing at times and wheezing audibly. No other history could be obtained as he was unable to give history due to language barrier and his son was trying to help. Previously has had an echocardiogram which had shown reduced ejection fraction, and the this pulmonary pressures were elevated. So far his cultures had been negative Previously he has had the staph aureus in his sputum He has had chronic kidney disease and his creatinine has been stable for a while and the his last creatinine is 1.8. He also has had slightly elevated troponin since admission and his last A1c was quite elevated. His proBNP upon admission was 9550. His white count was not elevated upon admission and the he did have a left shift however with no bands and his platelets were low. And his platelets have been chronically low on and off for a while. His initial INR was 2.76 this morning is 3.22. He has not had any ABG. Other investigations reviewed from past history showed that he had multiple renal cysts before small right-sided pleural effusion with right basilar atelectasis which appears to be stable His chest x-ray is unremarkable other than lung volumes are low with? Heart failure with small right pleural effusion no dense consolidation. He hasn't had any evidence of the rash he. He is temperature was 100.2 max since he came in here. Then he continues to be on room air. Allergies/Medications Allergies: Coded Allergies: latex (Mild, RASH 12/02/15) Home Med List: Aspirin (Children's Aspirin) 81 MG TAB.CHEW 1 TAB PO DAILY HEART Furosemide 40 MG TAB 1.5 TAB PO DAILY DIURETIC (Reported) Levothyroxine (Synthroid) 0.025 MG TAB 1 TAB PO DAILY THYROID (Reported) Linagliptin (Tradjenta) 5 MG TAB 1 TAB PO DAILY DIABETES (Reported) Metoprolol Tartrate (Lopressor) 25 MG TABLET 1 TAB PO BID HEART Potassium Chloride [address] 1 TAB PO DAILY SUPPLEMENT (Reported) Pravastatin Sodium (Pravastatin) 20 MG TAB 1 TAB PO DAILY CHOLESTEROL ( Reported) Prednisone 5 MG TAB 1 TAB PO DAILY SUPPLEMENT (Reported) [Prinivil] 2.5 MG PO DAILY BLOOD PRESSURE 1 TAB DAILY Vitamin B Complex, Iron, And11 (Feogen) (Unknown Strength) SGL (Unknown Dose) PO DAILY SUPPLEMENT (Reported) Warfarin Sodium (Coumadin) 3 MG TAB 1 TAB PO DAILY BLOOD THINNER Review of Systems Review of Systems Constitutional: Reports: see HPI. 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 Psychosocial History Where Do You Live? Home Who Do You Live With? spouse Services at Home: Nursing Smoking Status: Former Smoker ETOH Use: denies use Illicit Drug Use: denies illicit drug use Functional Ability ADLs Independent: dressing, eating, toileting, bathing. Ambulation: cane, walker Exam & Diagnostic Data Last 24 Hrs of Vital Signs/I&O Vital Signs Date Time Temp Pulse Resp B/P Pulse O2 O2 Flow FiO2 Ox Delivery Rate 10/31 08 95 Room Air Room Air 10/31 0800 98.0 75 22 94/58 96 Room Air Room Air 10/31 0644 71 28 104/60 10/31 0600 95 Room Air 10/31 0432 95 Room Air 10/31 0345 98.4 64 16 78/48 95 Room Air 10/31 0241 66 18 76/50 08 0112 80/48 10/31 0033 76/38 10/30 2334 87 88/50 10/30 2213 99.6 100 18 96/58 96 Room Air 10/30 2155 100.2 10/30 2113 100.2 73 18 106/56 94 Room Air Intake & Output 10/31 1600 10/31 0800 / 0000 Intake Total 200 0 Output Total 370 Balance -170 0 Intake, IV 200 Intake, Oral 0 Output, Urine 370 Patient 180 lb 175 lb Weight Last 48 Hrs of Labs/Gregorio: Laboratory Tests 10/31/16 0440: Anion Gap 9, Estimated GFR 52 L, Glucose 115 H, Calcium 7.9 L, Phosphorus 3.1 , Magnesium 1.7, Total Bilirubin 0.7, AST 73 H, ALT 72, Troponin I 0.88 *H, Albumin 2.9 L, Cortisol AM Sample 15.0, PT 33.4 H, INR 3.22 H, CBC w Diff NO MAN DIFF REQ, RBC 3.56 L, MCV 96.9 H, MCH 32.5 H, RDW 14.6 H, MPV 9.0, Gran % 78.6 H, Lymphocytes % 13.3 L, Monocytes % 7.7, Eosinophils % 0.1, Basophils % 0.3, Absolute Granulocytes 5.5, Absolute Lymphocytes 0.9 L, Absolute Monocytes 0.5, Absolute Eosinophils 0, Absolute Basophils 0, PUBS MCHC 33.6 10/31/16 0256: Urine Color YEL, Urine Clarity CLEAR, Urine pH 6.0, Ur Specific [place] 1.015, Urine Protein NEG, Urine Ketones NEG, Urine Nitrite NEG, Urine Bilirubin NEG, Urine Urobilinogen 0.2, Ur Leukocyte Esterase NEG, Ur Microscopic EXAM NOT REQUIRED, Urine Hemoglobin NEG, Urine Glucose NEG 10/31/16255: Ur Random Creatinine 79.2, Ur Random Sodium 23 L, Ur Random Potassium 46.3, Fraction Sodium Excret 0.3 10/31/16 0116: Lactic Acid 1.2 10/30/167: Anion Gap 11, Estimated GFR 44 L, BUN/Creatinine Ratio 22.7, Glucose 219 H, Lactic Acid 2.6 H, Calcium 8.9, Total Bilirubin 0.8, AST 47, ALT 54, Alkaline Phosphatase 61, Troponin I 0.44 *H, [id number]-Fgumfqchiur Pept 9550 H, Total Protein 5.5 L, Albumin 3.4 L, Globulin 2.1, Albumin/Globulin Ratio 1.6, TSH 2.110, Free T4 1.81, PT 28.7 H, INR 2.76 H, APTT 32, CBC w Diff NO MAN DIFF REQ, RBC 3.74 L, MCV 96.3 H, MCH 31.8 H, RDW 14.7 H, MPV 8.8, Gran % 86.2 H , Lymphocytes % 8.2 L, Monocytes % 5.4, Eosinophils % 0.1, Basophils % 0.1, Absolute Granulocytes 5.6, Absolute Lymphocytes 0.5 L, Absolute Monocytes 0.4, Absolute Eosinophils 0, Absolute Basophils 0, PUBS MCHC 33.1 Microbiology 11/01 255 URINE ROUT: Legionella Antigen - COMP 11/01 255 URINE ROUT: Streptococcus pneumoniae Antigen (M - COMP 10/30 2214 NASOPHARYN: Influenza Virus A & B Rapid Smear - COMP Assessment/Plan Impression/Plan: Physical Exam General Appearance Alert, Cooperative, Mild Distress Skin Chronic lower extremity skin changes HEENT Atraumatic, PERRLA, EOMI, Mucous Membr. moist/pink Neck Supple, +2 Carotid Pulse wo Bruit, Elevated JVD Cardiovascular Normal S1, Normal S2, Irregular rate Lungs Extensive rhonchi with bibasilar crackles Abdomen Normal Bowel Sounds, Soft, No Tenderness, No Hepatospenomegaly, No Masses Neurological Normal Tone, Cranial Nerves 3-12 NL Extremities 4+ bilateral lower extremity edema Vascular Normal Pulses, Pulses Symmetrical IMPRESSION This is an 89-year-old gentleman with history of reduced ejection fraction, atrial fibrillation, chronic venous insufficiency and previous OK, previous DVT PE with IVC filter with lower extremity swelling with appropriate INR on Coumadin, hypertension, hyperlipidemia, mxi-uokoldt-fukakilxc diabetes, states 3 chronic kidney disease now has * Increasing cough wheezing sputum production with no significant hypoxemia in a gentleman suggestive of active bronchitis. No clinical evidence suggestive of significant pneumonia however this cannot be ruled out yet. * Probable hypotension in the emergency room requiring fluid resuscitation, however his manual blood pressure is quite higher than his auto cuff am not sure whether he was in sepsis upon admission however his lactic acid was slightly elevated. His random cortisol level and TSH appears normal * Reduced ejection fraction high risk for congestive heart failure in the future after he has had fluid resuscitation * Pxf-lsbvdqo-mvguursij diabetes hence immunosuppressed * Thrombocytopenia which appears chronic but this needs to be monitored * Previous history of multiple renal cysts rule out any other cause of infection * He would need to have evaluation for lower extremity DVT. PE is a possibility but less likely and patient is not a great candidate for CTA Recommendation * Continue current antibiotics * Sputum culture * Will consider prednisone 40 qd if he continues to do poorly, hold for now * Minimize fluids * Watch the femoral line and this may need to be removed and patient needs to have his groin compressed for a while as his INR is high and his platelets are low * Sputum culture if any * Lower extremity Doppler * Check blood pressures manually * Nebulizer treatment with albuterol and ipratropium every 6 hours round-the- clock * Cardiology is following him he probably would require an echocardiogram * If it continues to do poorly we will consider CTA of the chest are a noncontrast CAT scan to evaluate him. Pt is critically ill tts 38 mins Consult Acknowledgment - Thank you for your consult request.
--- NOTE | 2016-10-31 11:00 | PN- Resident CRCU ---
Subjective HPI/CRCU Issues: No acute events overnight. Blood pressures improved with IV fluids. Patient was seen and examined this morning. He is lying comfortably in bed. His family members are at bedside and translate for him as he does not speak Hebrew. He reports feeling much better and has no complaints. He passed swallow eval and was started on oral diet. Objective Vital Signs & I&O Last 8 Hrs of Vitals and I&O: Vital Signs Date Time Temp Pulse Resp B/P Pulse O2 O2 Flow FiO2 Ox Delivery Rate 10/31 2106 97 Room Air 10/31 2000 93 Room Air 10/31 1906 100.1 10/31 1600 97 Room Air Room Air 10/31 1600 100.2 71 32 104/73 97 Room Air Room Air 10/31 1220 Room Air 10/31 1200 100 Room Air Room Air 10/31 1159 97 Room Air 10/31 0800 95 Room Air Room Air / 0800 98.0 75 22 94/58 96 Room Air Room Air / 0644 71 28 104/60 / 0600 95 Room Air / 0432 95 Room Air / 0345 98.4 64 16 78/48 95 Room Air /08 0241 66 18 76/50 03/08 0112 80/48 03/08 0033 76/38 03/07 2334 87 88/50 Intake & Output 10/31 1600 Intake Total 1058 Output Total 470 Balance 588 Intake, IV 508 Intake, Oral 550 Number 1 Bowel Movements Output, Urine 470 Exam General Appearance: no apparent distress, alert, awake Head: atraumatic, normal appearance Ears, Nose, Throat: moist mucus membranes Neck: supple Respiratory: rhonchi scattered throughout bilateral lung meyer, bibasilar crackles Cardiovascular: irregularly irregular, normal S1 and S2 Gastrointestinal: soft, non-tender, positive bowel sounds Extremities: 4+ bilateral lower extremity edema Skin: warm/dry Current Medications: Current Medications Sig/Kenia Start time Last Medication Dose Route Stop Time Status Admin Acetaminophen 650 MG Q6P PRN 10/31 0330 AC 10/31 PO 1807 Albuterol Sulfate 3 ML TID 10/31 1600 AC 10/31 INH 2105 Aspirin 81 MG DAILY 10/31 1000 AC 10/31 PO 1032 Azithromycin 500 MG AT BEDTIME 10/31 2199 AC 10/31 Dextrose/Water 250 ML IV 2217 Azithromycin 500 MG ONCE ONE 10/30 2229 DC 10/30 Dextrose/Water 250 ML IV 10/30 2329 2334 Ceftriaxone Sodium 1,000 MG AT BEDTIME 10/31 2200 AC 10/31 IV 2217 Guaifenesin 10 ML Q6P PRN 10/31 0245 AC PO Insulin Aspart 0 TIDAC 10/31 0800 AC 10/31 SC 1150 Ipratropium L[place] 2.5 ML TID 10/31 1600 AC 10/31 INH 2105 Levothyroxine Sodium 0.025 MG DAILY AC 10/31 0700 AC 10/31 PO 0633 Lidocaine 0 .STK-MED ONE 10/31 0128 DC .ROUTE Magnesium Oxide 400 MG ONE ONE 10/31 08 DC 10/31 PO 10/31 0816 1032 Norepinephrine 4 MG Q24H 10/31 0430 DC Sodium Chloride 250 ML IV Potassium Chloride 40 MEQ ONCE ONE 10/31 08 DC 10/31 PO 10/31 0816 1032 Pravastatin Sodium 20 MG 1700 10/31 1700 AC 10/31 PO 1647 Sodium Chloride 1,000 ML BOLUS ONE 10/31 0015 DC 10/31 IV 10/31 0114 0040 Sodium Chloride 1,000 ML .Q10H 10/30 2345 DC 10/31 IV 0527 Sodium Chloride 1,000 ML BOLUS ONE 10/30 2330 DC / IV / 0029 2345 Sodium Chloride 1,000 ML BOLUS ONE 10/30 2230 DC /07 IV 10/30 2329 2229 Results Results: Laboratory Tests 10/31 10/31 1115 0440 Chemistry Sodium (137 - 145 mmol/L) 137 Potassium (3.5 - 5.1 mmol/L) 3.7 Chloride (98 - 107 mmol/L) 104 Carbon Dioxide (22 - 30 mmol/L) 25 Anion Gap (5 - 16) 9 BUN (9 - 20 mg/dL) 29 H Creatinine (0.7 - 1.2 mg/dL) 1.3 H Estimated GFR (>60 ml/min) 52 L Glucose (65 - 99 mg/dL) 115 H Calcium (8.4 - 10.2 mg/dL) 7.9 L Phosphorus (2.5 - 4.5 mg/dL) 3.1 Magnesium (1.6 - 2.3 mg/dL) 1.7 Total Bilirubin (0.2 - 1.3 mg/dL) 0.7 AST (17 - 59 U/L) 73 H ALT (21 - 72 U/L) 72 Troponin I (<0.11 ng/ml) 0.68 *H 0.88 *H Albumin (3.5 - 5.0 g/dL) 2.9 L Cortisol AM Sample (4.46 - 22.7 ug/dL) 15.0 Coagulation PT (9.4 - 12.5 SEC) 33.4 H INR (0.90 - 1.17) 3.22 H Hematology CBC w Diff NO MAN DIFF REQ WBC (4.8 - 10.8 /CUMM) 7.0 RBC (4.70 - 6.10 /CUMM) 3.56 L Hgb (14.0 - 18.0 G/DL) 11.6 L Hct (42 - 52 %) 34.5 L MCV (80.0 - 94.0 FL) 96.9 H MCH (27.0 - 31.0 PG) 32.5 H RDW (11.5 - 14.5 %) 14.6 H Plt Count (130 - 400 /CUMM) 74 L MPV (7.4 - 10.4 FL) 9.0 Gran % (42.2 - 75.2 %) 78.6 H Lymphocytes % (20.5 - 51.1 %) 13.3 L Monocytes % (1.7 - 9.3 %) 7.7 Eosinophils % (0 - 5 %) 0.1 Basophils % (0.0 - 2.0 %) 0.3 Absolute Granulocytes (1.4 - 6.5 /CUMM) 5.5 Absolute Lymphocytes (1.2 - 3.4 /CUMM) 0.9 L Absolute Monocytes (0.10 - 0.60 /CUMM) 0.5 Absolute Eosinophils (0.0 - 0.7 /CUMM) 0 Absolute Basophils (0.0 - 0.2 /CUMM) 0 PUBS MCHC (33.0 - 37.0 G/DL) 33.6 03/08 03/08 03/08 0256 0256 0116 Chemistry Lactic Acid (0.7 - 2.1 mmol/L) 1.2 Urines Urine Color (YEL,AMB,STR) YEL Urine Clarity (CLEAR) CLEAR Urine pH (5.0 - 8.0) 6.0 Ur Specific [place] (1.001 - 1.035) 1.015 Urine Protein (NEG,<30 MG/DL) NEG Urine Ketones (NEG) NEG Urine Nitrite (NEG) NEG Urine Bilirubin (NEG) NEG Urine Urobilinogen (0.1 - 1.0 EU/dl) 0.2 Ur Leukocyte Esterase (NEG) NEG Ur Microscopic EXAM NOT REQUIRED Urine Hemoglobin (NEG) NEG Ur Random Creatinine (mg/dL) 79.2 Ur Random Sodium (30 - 90 mmol/L) 23 L Ur Random Potassium (mmol/L) 46.3 Fraction Sodium Excret (<1% %) 0.3 Urine Glucose (N MG/DL) NEG Sputum Cx (10/31/16): Many WBCs, few gram positive cocci, rare gram positive rods and moderate budding yeast BCx (10/30/16): NGTD x 2 ECHO Findings: 1. This was a technically difficult examination. 2. Fibrocalcific degeneration is present in the aortic valve with evidence of mild valvular stenosis and and estimated BRITTANI of 1.6 cm2. 3. MItral leaflet thickening is present with mild mitral insufficiency and moderate to severe left atrial enlargement. 4. There is no significant pericardial fluid present. 5. The left ventricular chamber size is normal with localized inferoposterior hypokinesia and an ejection fraction of approximately 50%. 6. The right heart structures were not optimally visualized. Mild to moderate tricuspid insufficiency is present with no significant pulmonary hypertension. US Findings: BLE DOPPLER US: Normal triplex scan without evidence of deep venous thrombosis involving the lower extremities. Impression/Plan Impression/Problem List Impression: 89 y/o M with PMHx of HFrEF, atrial fibrillation, DVT and PE s/p IVC filter placement, CKD stage 3 and [id number]-pcyvxtjcw T2DM who presents with fever, chills and worsening productive cough. Problem List: 1. Acute bronchitis 2. Hypotension 3. HFrEF (heart failure with reduced ejection fraction) 4. Atrial fibrillation 5. T2DM (type 2 diabetes mellitus) 6. Hypothyroidism 7. Thrombocytopenia Pain Ratin Tomorrow's Labs & Rationales: CBC and ICU bundle (ICU patient) INR to dose warfarin Plan Respiratory: Respiratory status stable. Remains on room air with no significant hypoxemia this admission. CXR with no evidence of pneumonia. Infectious Diseases: #Acute bronchitis: Remains afebrile and leukocytosis. Although initial presentation was felt to be secondary to sepsis given reported fevers and chills as well as hypotension and lactic acidosis, there is no convincing evidence to call this episode sepsis. * Continue azithromycin 500 mg IV daily and ceftriaxone 1 g IV daily. * Check sputum culture. * TRC and nebulizer treatment with albuterol and ipratropium Q6H. Cardiovascular: #Hypotension: Improved with IV fluids overnight which were later discontinued today. Blood pressures remained stable. Random cortisol and TSH WNL. * Femoral line removed. * Monitor off IVF. * Holding prior to admission Lasix 60 mg PO daily and metoprolol 25 mg PO BID in the setting of hypotension with the plan to resume once blood pressures tolerate. #HFrEF: ECHO with hypokinetic inferior and posterior wall and LVEF estimated at 50-55%. Volume overloaded on exam today with positive JVD and 4+ bilateral lower extremity edema. * Cardiology following. Appreciate their recs. * ECHO ordered to evalute left ventricular function. #Atrial fibrillation: Remains in Afib with RVR. * Holding prior to admission metoprolol in the setting of hypotension. Hematology: #History of PE and DVT: S/p IVC filter placement. BLE Doppler US ordered in the setting of 4+ lower extremity edema but with no evidence of DVT. INR 3.22 this AM. * BLE Doppler US ordered to rule out DVT. * Hold warfarin today. * Monitor INR and resume warfarin once INR is no longer supratherapeutic to keep INR between 2 and 3. * Although PE is on the differential, albeit less likely, patient is not a good candidate for CTA Chest in the setting of CKD. #Thrombocytopenia: Platelets 95 on admission, have decreased to 74. No evidence of bleeding. Likely chronic. * Continue to monitor platelet count. Metabolic: #NOELLE on CKD stage 3: Cr 1.5 on admission, has improved to 1.3. Likely pre-renal secondary to hypotension. * Monitor lytes and kidney function. * Replete to K > 4 and Mg > 2 #[id number]-[id number] T2DM: Takes linagliptin 5 mg PO daily. * Hold oral hypoglycemic agents while inpatient. * Accu-checks and low dose sliding scale Novolog TIDAC. Alimentary: Consistent Carbohydrate 2 with 2 g Na restriction Neurological: AAO x 3. DVT/Prophylaxis: mechanical, pharmacological
--- NOTE | 2016-10-31 11:19 | NUR ---
PT HAVING A BEDSIDE ECHO PERFORMED. WILL PERFORM EKG WHEN THE ECHO IS FINISHED.
--- NOTE | 2016-10-31 11:30 | NUR ---
TROPONIN OBTAINED AND EKG PERFORMED PER MD ORDER. IN ADDITION A SPUTUM CULTURE WAS OBTAINED AT 1005 AND SENT TO THE LAB. IVF STOPPED AT THIS TIME PER MD ORDER. IF PT MAINTAINS ADEQUATE BP THEN THE RG TLC WILL BE DC'D LATER THIS AFTERNOON.
--- NOTE | 2016-10-31 14:30 | NUR ---
RG TLC WAS REMIVED AT 1345 AND PRESSURE WAS APPLIED TO THE AREA FOR 15MINUTES.
[2016-10-31 16:00] VITALS: BP 104/73
--- NOTE | 2016-10-31 17:33 | NUR ---
NO BLEEDING NOTED TO THE AREA OF THE TLC REMOVAL. U/S OF BLE TO BE PERFORMED TOMORROW.
--- NOTE | 2016-10-31 19:52 | ECHOCARDIOGRAM REPORT ---
YESSY HERNANDEZ Age: 89 : 1925 Gender: M Exam Date: 10/31/2016 11:00 Exam Location: [facility] Ht (in): 69 Wt (lb): 175 BSA: 1.98 BP: 104 / 60 Ordering Physician: SAYDA GUZMAN MD Referring Physician: SAYDA GUZMAN MD Technologist: Juan Carlos Stewart [facility] Room Number: 109 Indications: HEART FAILURE Rhythm: Atrial fibrillation Technical Quality: Fair FINDINGS Left Ventricle Normal size left ventricle. Hypokinetic inferior wall. Hypokinetic posterior wall. Borderline normal left ventricular ejection fraction estimated at 50-55%. Right Ventricle Right ventricle not well visualized, grossly normal. Right Atrium Right atrium not well visualized, grossly normal. Left Atrium Moderate to severe left atrial dilatation. Mitral Valve Mitral valve thickened. Mild mitral regurgitation. Aortic Valve Trileaflet aortic valve. Diffuse thickening of the aortic valve cusps with reduced excursion. Mild aortic stenosis. Tricuspid Valve Tricuspid valve not well visualized, grossly normal. Mild-to- moderate tricuspid regurgitation. Right ventricular systolic pressure estimated at 36 mmHg. Pulmonic Valve Pulmonic valve not well visualized. Pericardium No pericardial effusion. Great Vessels Normal size aortic root and proximal ascending aorta. CONCLUSIONS 1. This was a technically difficult examination. 2. Fibrocalcific degeneration is present in the aortic valve with evidence of mild valvular stenosis and and estimated BRITTANI of 1.6 cm2. 3. MItral leaflet thickening is present with mild mitral insufficiency and moderate to severe left atrial enlargement. 4. There is no significant pericardial fluid present. 5. The left ventricular chamber size is normal with localized inferoposterior hypokinesia and an ejection fraction of approximately 50%. 6. The right heart structures were not optimally visualized. Mild to moderate tricuspid insufficiency is present with no significant pulmonary hypertension. Donato Scales M.D. (Electronically Signed) Final Date: 31 October 2016 19:51 MEASUREMENTS (Male / Female) Normal Values 2D ECHO LV Diastolic Diameter PLAX 5.3 cm 4.2 - 5.9 / 3.9 - 5.3 cm LV Systolic Diameter PLAX 4.4 cm 2.1 - 4.0 cm LV Fractional Shortening PLAX 17.0 % 25 - 46 % LV Ejection Fraction 2D Teich 35.2 % IVS Diastolic Thickness 1.4 cm LVPW Diastolic Thickness 1.1 cm LV Relative Wall Thickness 0.5 LVOT Diameter 2.2 cm Aortic Root Diameter 3.2 cm LA Systolic Diameter LX 4.3 cm 3.0 - 4.0 / 2.7 - 3.8 cm LA Volume 109.0 cm 18 - 58 / 22 - 52 cm Ascending Aorta Diameter 3.1 cm DOPPLER AV Peak Velocity 214.0 cm/s AV Peak Gradient 18.3 mmHg AV Mean Velocity 151.0 cm/s AV Mean Gradient 11.0 mmHg AV Velocity Time Integral 45.1 cm LVOT Peak Velocity 75.9 cm/s LVOT Peak Gradient 2.3 mmHg LVOT Mean Velocity 49.7 cm/s LVOT Mean Gradient 1.0 mmHg LVOT Velocity Time Integral 13.6 cm LVOT Stroke Volume 51.7 cm AV Area Cont Eq vti 1.1 cm AV Area Cont Eq pk 1.3 cm MV Peak Velocity 101.0 cm/s MV Peak Gradient 4.1 mmHg MV Mean Velocity 52.3 cm/s MV Mean Gradient 1.0 mmHg Mitral E Point Velocity 109.5 cm/s Mitral A Point Velocity 29.6 cm/s Mitral E to A Ratio 3.7 MV PHT Velocity 105.0 cm/s MV Deceleration [place] 267.0 cm/s MV Pressure Half Time 118.0 ms MV Area PHT 1.9 cm MV Deceleration Time 155.0 ms MR Peak Velocity 365.0 cm/s MR Peak Gradient 53.3 mmHg TR Peak Velocity 277.0 cm/s TR Peak Gradient 30.7 mmHg Right Atrial Pressure 10.0 mmHg Pulmonary Artery Systolic Pressu 40.7 mmHg Right Ventricular Systolic Press 40.7 mmHg PV Peak Velocity 96.5 cm/s PV Peak Gradient 3.7 mmHg PV Mean Velocity 71.3 cm/s PV Mean Gradient 2.0 mmHg PV Velocity Time Integral 19.3 cm LV E' Lateral Velocity 6.1 cm/s Mitral E to LV E' Lateral Ratio 17.8 LV E' Septal Velocity 3.6 cm/s Mitral E to LV E' Septal Ratio 30.3
--- NOTE | 2016-10-31 21:30 | ULTRASOUND REPORT ---
EXAMINATION: BILATERAL TRIPLEX SCANNING OF THE LOWER EXTREMITIES CLINICAL INFORMATION: Lower extremity swelling. COMPARISON: None. TECHNIQUE: Color-flow triplex imaging with spectral analysis and compression Doppler were performed on the lower extremities. FINDINGS: Respiratory variation, normal compression and augmented flow are noted throughout the lower extremities. The visualized common femoral vein, superficial femoral vein, profunda femoral vein, popliteal vein and mid calf peroneal and posterior tibial venous segments show no evidence of deep venous thrombosis. Small bilateral Murray's cysts. IMPRESSION: Normal triplex scan without evidence of deep venous thrombosis involving the lower extremities.
[2016-11-01] VITALS: BP 92/54
[2016-11-01 04:59] LABS: PT 38.2 SEC (9.4-12.5)
[2016-11-01 05:00] LABS: ABSOLUTE BASOPHIL COUNT 0 /CUMM (0.0-0.2); ABSOLUTE EOSINOPHIL COUNT 0.1 /CUMM (0.0-0.7); ABSOLUTE GRANULOCYTE CT 4.2 /CUMM (1.4-6.5); ABSOLUTE LYMPH COUNT 0.8 /CUMM (1.2-3.4); ABSOLUTE MONOCYTE COUNT 0.4 /CUMM (0.10-0.60); BASOPHIL % 0.4 % (0.0-2.0); EOSINOPHIL % 1.2 % (0-5); GRANULOCYTE % 77.2 % (42.2-75.2); HEMATOCRIT 33.9 % (42-52); MEAN CORPUSCULAR HGB 32.1 PG (27.0-31.0); MEAN CORPUSCULAR HGB CONC 33.4 G/DL (33.0-37.0); MEAN CORPUSCULAR VOLUME 96.1 FL (80.0-94.0); MEAN PLATELET VOLUME 9.3 FL (7.4-10.4); PLATELET COUNT 73 /CUMM (130-400); RED BLOOD CELL CT 3.53 /CUMM (4.70-6.10); WHITE BLOOD CELL COUNT 5.4 /CUMM (4.8-10.8)
--- NOTE | 2016-11-01 07:09 | PN- Resident CRCU ---
Subjective HPI/CRCU Issues: No acute events overnight. Patient was seen and examined this morning. He reports feeling better and has no complaints. His appetite is improving. Later in the morning, patient became tachycardic to 130s. EKG confirmed atrial fibrillation with rapid ventricular response. Patient was asymptomatic at that time and denied chest pain or shortness of breath. He was given 2.5 mg of IV metoprolol with improvement of his heart rate. Objective Vital Signs & I&O Last 8 Hrs of Vitals and I&O: Vital Signs Date Time Temp Pulse Resp B/P Pulse O2 O2 Flow FiO2 Ox Delivery Rate 11/01 1017 115 108/68 11/01 1017 108/68 11/01 0900 96 Room Air Room Air 11/01 0800 99 Room Air 11/01 0800 99.7 86 29 120/80 99 Room Air 11/01 0400 99 Room Air 11/01 0000 98.6 80 21 92/54 95 Room Air 11/01 0000 95 Room Air 10/31 2106 97 Room Air 10/31 2000 93 Room Air 10/31 1906 100.1 10/31 1600 97 Room Air Room Air 10/31 1600 100.2 71 32 104/73 97 Room Air Room Air 10/31 1220 Room Air 10/31 1200 100 Room Air Room Air 10/31 1159 97 Room Air Exam General Appearance: well developed/nourished, no apparent distress, alert, awake Head: atraumatic, normal appearance Ears, Nose, Throat: moist mucus membranes Neck: supple Respiratory: rhonchi scattered throughout bilateral lung meyer, bibasilar crackles Cardiovascular: irregularly irregular, normal S1 and S2 Gastrointestinal: soft, non-tender, positive bowel sounds Extremities: bilateral lower extremities with 4+ edema Skin: warm/dry Current Medications: Current Medications Sig/Kenia Start time Last Medication Dose Route Stop Time Status Admin Acetaminophen 650 MG Q6P PRN 10/31 0330 AC 10/31 PO 1807 Albuterol Sulfate 3 ML TID 10/31 1600 AC 11/01 INH 0840 Aspirin 81 MG DAILY 10/31 1000 AC 11/01 PO 1016 Azithromycin 500 MG AT BEDTIME 10/31 2199 AC 10/31 Dextrose/Water 250 ML IV 11/02 0000 2217 Ceftriaxone Sodium 1,000 MG AT BEDTIME 10/31 2199 AC 10/31 IV 11/02 0000 2217 Cefuroxime Sodium 250 MG Q12 11/02 1000 AC PO Furosemide 40 MG ONE ONE 11/01 0830 DC 11/01 PO 11/01 0831 1016 Guaifenesin 10 ML Q6P PRN 10/31 0245 AC PO Insulin Aspart 0 TIDAC 10/31 0800 AC 10/31 SC 1150 Ipratropium [place] 2.5 ML TID 10/31 1600 AC 11/01 INH 0840 Levothyroxine Sodium 0.025 MG DAILY AC 10/31 0700 AC 11/01 PO 0627 Magnesium Oxide 400 MG ONE ONE 11/01 0715 DC 11/01 PO 11/01 0716 0804 Metoprolol Tartrate 2.5 MG ONCE ONE 11/01 1015 DC 11/01 IV 11/01 1016 1017 Metoprolol Tartrate 12.5 MG BID 11/01 1000 AC PO Potassium Chloride 10 MEQ ONCE ONE 11/01 07 DC 11/01 PO 11/01 0716 0807 Pravastatin Sodium 20 MG 1700 10/31 1700 AC 10/31 PO 1647 Prednisone 20 MG DAILY 11/01 1000 AC 11/01 PO 11/03 1001 1017 Sodium Chloride 1,000 ML .Q10H 10/30 2345 DC 10/31 IV 0527 Results Results: Laboratory Tests 11/01 10/31 0420 1115 Chemistry Sodium (137 - 145 mmol/L) 138 Potassium (3.5 - 5.1 mmol/L) 3.9 Chloride (98 - 107 mmol/L) 107 Carbon Dioxide (22 - 30 mmol/L) 25 Anion Gap (5 - 16) 7 BUN (9 - 20 mg/dL) 21 H Creatinine (0.7 - 1.2 mg/dL) 1.0 Estimated GFR (>60 ml/min) > 60 Glucose (65 - 99 mg/dL) 103 H Calcium (8.4 - 10.2 mg/dL) 8.6 Phosphorus (2.5 - 4.5 mg/dL) 2.7 Magnesium (1.6 - 2.3 mg/dL) 1.9 Total Bilirubin (0.2 - 1.3 mg/dL) 0.8 AST (17 - 59 U/L) 48 ALT (21 - 72 U/L) 63 Troponin I (<0.11 ng/ml) 0.68 *H Albumin (3.5 - 5.0 g/dL) 2.8 L Coagulation PT (9.4 - 12.5 SEC) 38.2 H INR (0.90 - 1.17) 3.69 H Hematology CBC w Diff NO MAN DIFF REQ WBC (4.8 - 10.8 /CUMM) 5.4 RBC (4.70 - 6.10 /CUMM) 3.53 L Hgb (14.0 - 18.0 G/DL) 11.3 L Hct (42 - 52 %) 33.9 L MCV (80.0 - 94.0 FL) 96.1 H MCH (27.0 - 31.0 PG) 32.1 H RDW (11.5 - 14.5 %) 15.0 H Plt Count (130 - 400 /CUMM) 73 L MPV (7.4 - 10.4 FL) 9.3 Gran % (42.2 - 75.2 %) 77.2 H Lymphocytes % (20.5 - 51.1 %) 13.8 L Monocytes % (1.7 - 9.3 %) 7.4 Eosinophils % (0 - 5 %) 1.2 Basophils % (0.0 - 2.0 %) 0.4 Absolute Granulocytes (1.4 - 6.5 /CUMM) 4.2 Absolute Lymphocytes (1.2 - 3.4 /CUMM) 0.8 L Absolute Monocytes (0.10 - 0.60 /CUMM) 0.4 Absolute Eosinophils (0.0 - 0.7 /CUMM) 0.1 Absolute Basophils (0.0 - 0.2 /CUMM) 0 PUBS MCHC (33.0 - 37.0 G/DL) 33.4 BCx (10/30/16): NGTD x2 Sputum Cx (10/31/16): Mixed naman after 1 day CXR Findings: 1. Mild pulmonary edema with progressive small right sided pleural effusion. 2. Increasing atelectasis or consolidation in right lung base. Impression/Plan Impression/Problem List Impression: 89 y/o M with PMHx of HFrEF, atrial fibrillation, DVT and PE s/p IVC filter placement, CKD stage 3 and [id number] T2DM who presents with fever, chills and worsening productive cough. Problem List: 1. Thrombocytopenia 2. Hypothyroidism 3. T2DM (type 2 diabetes mellitus) 4. HFrEF (heart failure with reduced ejection fraction) 5. Hypotension 6. Atrial fibrillation 7. Acute on chronic kidney failure Pain Ratin Tomorrow's Labs & Rationales: CBC and ICU bundle (ICU patient) INR to dose warfarin Plan Respiratory: Respiratory status stable. Remains on room air with no significant hypoxemia this admission. CXR with no evidence of pneumonia. Infectious Diseases: #Acute bronchitis: Remains afebrile and without leukocytosis. Sputum culture with mixed naman. * Continue azithromycin 500 mg IV daily and ceftriaxone 1 g IV for one more day (10/30-11/01). Change to ceftin 250 mg PO BID tomorrow. * TRC and nebulizer treatment with albuterol and ipratropium Q8H. Cardiovascular: #Atrial fibrillation: Episode of RVR this morning. Heart rate improved with 2.5 mg of IV metoprolol. Remains in atrial fibrillation. * Cardiology following. Appreciate their recs. * Resume prior to admission metoprolol 12.5 mg PO BID. * OK to downgrade to General Medicine per cardiology. #HFrEF: ECHO with hypokinetic inferior and posterior wall and LVEF estimated at 50-55% improved from prior LVEF 45%. * Give one dose of Lasix 20 mg IV today. * Monitor off IVF. Hematology: #History of PE and DVT: S/p IVC filter placement. BLE Doppler US with no evidence of DVT. INR remains supratherapeutic at 3.69 this morning. * Monitor INR and resume warfarin once INR is no longer supratherapeutic to keep INR between 2 and 3. #Thrombocytopenia: Platelets remain in the 70s. No evidence of bleeding. Likely chronic. * Continue to monitor platelet count. Metabolic: #NOELLE on CKD stage 3: Cr 1.5 on admission, has improved to 1.0. Likely pre-renal secondary to hypotension. * Monitor lytes and kidney function. * Replete to K > 4 and Mg > 2. #Qbc-mqrcorv-eiloojvnj T2DM: Takes linagliptin 5 mg PO daily. * Hold oral hypoglycemic agents while inpatient. * Accu-checks and low dose sliding scale Novolog TIDAC. Alimentary: Consistent Carbohydrate 2 with 2 g Na restriction Neurological: AAO x 3 DVT/Prophylaxis: mechanical, pharmacological Code Status: Full Code
--- NOTE | 2016-11-01 07:42 | PN- Pulmonary ---
Subjective HPI/Critical Care Issues: Better Tmax 100.2 Mild cough less wheezing Slept ok No other complaints Objective Current Medications: Current Medications Sig/Kenia Start time Last Medication Dose Route Stop Time Status Admin Acetaminophen 650 MG Q6P PRN 10/31 0330 AC 10/31 PO 1807 Albuterol Sulfate 3 ML TID 10/31 1600 AC 10/31 INH 2105 Aspirin 81 MG DAILY 10/31 1000 AC 10/31 PO 1032 Azithromycin 500 MG AT BEDTIME 10/31 2200 AC 10/31 Dextrose/Water 250 ML IV 2217 Ceftriaxone Sodium 1,000 MG AT BEDTIME 10/31 2200 AC 10/31 IV 2217 Guaifenesin 10 ML Q6P PRN 10/31 0245 AC PO Insulin Aspart 0 TIDAC 10/31 0800 AC 10/31 SC 1150 Ipratropium [place] 2.5 ML TID 10/31 1600 AC 10/31 INH 2105 Levothyroxine Sodium 0.025 MG DAILY AC 10/31 0700 AC 11/01 PO 0627 Magnesium Oxide 400 MG ONE ONE 11/01 0715 DC PO 11/01 0716 Magnesium Oxide 400 MG ONE ONE 10/31 0815 DC /08 PO /08 0816 1032 Norepinephrine 4 MG Q24H 10/31 0430 DC Sodium Chloride 250 ML IV Potassium Chloride 10 MEQ ONCE ONE 11/01 0715 DC PO 11/01 0716 Potassium Chloride 40 MEQ ONCE ONE 10/31 0815 DC /08 PO / 0816 1032 Pravastatin Sodium 20 MG 1700 /08 1700 AC 10/31 PO 1647 Sodium Chloride 1,000 ML .Q10H 10/30 2345 DC 10/31 IV 0527 Vital Signs & I&O Last 24 Hrs of Vitals and I&O: Vital Signs Date Time Temp Pulse Resp B/P Pulse O2 O2 Flow FiO2 Ox Delivery Rate 11/01 0400 99 Room Air 11/01 0000 98.6 80 21 92/54 95 Room Air 11/01 0000 95 Room Air 10/31 2106 97 Room Air 10/31 2000 93 Room Air 10/31 1906 100.1 / 1600 97 Room Air Room Air 10/31 1600 100.2 71 32 104/73 97 Room Air Room Air 10/31 1220 Room Air 10/31 1200 100 Room Air Room Air 10/31 1159 97 Room Air 10/31 0800 95 Room Air Room Air 03/08 0800 98.0 75 22 94/58 96 Room Air Room Air Intake & Output 11/01 0800 11/01 0000 10/31 1600 Intake Total 198 834 1275 Output Total 1000 205 470 Balance -840 365 588 Intake, IV 60 270 508 Intake, Oral 100 300 550 Number 0 0 1 Bowel Movements Output, Urine 1000 205 470 Impression/Plan Impression/Plan Impression/Plan: Physical Exam General Appearance Alert, Cooperative, Mild Distress Skin Chronic lower extremity skin changes HEENT Atraumatic, PERRLA, EOMI, Mucous Membr. moist/pink Neck Supple, +2 Carotid Pulse wo Bruit, Elevated JVD Cardiovascular Normal S1, Normal S2, Irregular rate Lungs Extensive rhonchi with bibasilar crackles Abdomen Normal Bowel Sounds, Soft, No Tenderness, No Hepatospenomegaly, No Masses Neurological Normal Tone, Cranial Nerves 3-12 NL Extremities 4+ bilateral lower extremity edema Vascular Normal Pulses, Pulses Symmetrical IMPRESSION This is an 89-year-old gentleman with history of reduced ejection fraction, atrial fibrillation, chronic venous insufficiency and previous CO, previous DVT PE with IVC filter with lower extremity swelling with appropriate INR on Coumadin, hypertension, hyperlipidemia, pbl-ygvntft-ejnquzglm diabetes, states 3 chronic kidney disease now has * Increasing cough wheezing sputum production with no significant hypoxemia in a gentleman suggestive of active bronchitis. No clinical evidence suggestive of significant pneumonia however this cannot be ruled out yet. * Probable hypotension in the emergency room requiring fluid resuscitation, however his manual blood pressure is quite higher than his auto cuff am not sure whether he was in sepsis upon admission however his lactic acid was slightly elevated. His random cortisol level and TSH appears normal * Improved ef to 55 percent, (45 percent before) * Zcd-miignnj-wvsrscugw diabetes hence immunosuppressed * Thrombocytopenia which appears chronic but this needs to be monitored * Previous history of multiple renal cysts rule out any other cause of infection * Lower ext no sig dvt Recommendation * Continue current antibiotics, and change to po ceftin in am * Prednisone 20 qd for three days * Minimize fluids, lasix po one dose today * Check blood pressures manually * Nebulizer treatment with albuterol and ipratropium every 8 hrs hours round- the-clock * Rpt cxr * Ok to go out of the unit
[2016-11-01 08:00] VITALS: BP 120/80
--- NOTE | 2016-11-01 10:34 | NUR ---
HEP GTT PLACED ON HOLD AT 1015 FOR PERCUTANEOUS BILIARY DRAIN PLACEMENT. PT HAS BEEN NPO PRIOR TO MIDNIGHT.
--- NOTE | 2016-11-01 10:46 | NUR ---
PT HR INCREASED TO 130'S/ AFIB. PT GIVEN METOPROLOL 2.5 IVP. INCREASED RR. EKG OBTAINED. HR DEC TO 90-100'S. SBP REMAINED>100. PT STARTED ON LASIX 40 PO. PT DECLINES DIFFICULTY BREATHING/CHEST PAIN.
[2016-11-01] MEDS ORDERED: METOPROLOL TART25 M1 PO (11:30)
[2016-11-01] MEDS ORDERED: COUMADIN2.5 M1 PO (11:34)
[2016-11-01] MEDS ORDERED: COUMADIN5 M2 PO ×2 (11:36)
--- NOTE | 2016-11-01 12:03 | RADIOLOGY REPORT ---
EXAMINATION: XR PORTABLE CHEST CLINICAL INFORMATION: Patient presented with fever and productive cough. No evidence of hypoxemia. [place] to represent bronchitis with initial chest x-ray showing no evidence of pneumonia. Evaluate for acute change. COMPARISON: Prior chest x-rays, most recent of which is dated 10/30/2016. TECHNIQUE: Portable AP semierect view of the chest was obtained. FINDINGS: The cardiomediastinal silhouette is enlarged, unchanged. Tortuosity and calcification of the aortic arch and descending aorta is seen. Central pulmonary arteries are enlarged and subtle perihilar prominence is seen, similar to prior exam, perhaps representing mild interstitial edema. There is increasing opacity seen in the right lower lung with complete obscuration of the right hemidiaphragm, likely related to a combination of pleural fluid and subsegmental atelectasis versus consolidation. Left lung base is clear. No pneumothorax is present. Bony structures are unremarkable. IMPRESSION: 1. Mild pulmonary edema with progressive small right-sided pleural effusion. 2. Increasing atelectasis or consolidation in right lung base.
[2016-11-01 16:00] VITALS: BP 98/60
--- NOTE | 2016-11-01 18:07 | NUR ---
PT DOWNGRADED TO GENERAL MEDICINE PER DR GALAN
--- NOTE | 2016-11-01 19:36 | PN- Cardiology ---
Subjective Subjective: Clinically improving with improved respiratory status and no CV symptoms. Objective Vital Signs and I&Os Vital Signs Date Time Temp Pulse Resp B/P Pulse O2 O2 Flow FiO2 Ox Delivery Rate 11/01 1600 Room Air Room Air 11/01 1600 98.2 71 30 98/60 97 Room Air 11/01 1017 115 108/68 11/01 1017 108/68 11/01 0900 96 Room Air Room Air 11/01 0800 99 Room Air 11/01 0800 99.7 86 29 120/80 99 Room Air 11/01 0400 99 Room Air 11/01 0000 98.6 80 21 92/54 95 Room Air 11/01 0000 95 Room Air 10/31 2106 97 Room Air 10/31 2000 93 Room Air Intake & Output 11/01 1600 11/01 0800 11/01 0000 10/31 1600 10/31 0800 10/31 0000 Intake Total 240 355 985 4387 200 0 Output Total 250 1000 205 470 370 Balance -10 -840 365 588 -170 0 Intake, IV 0 60 270 508 200 Intake, Oral 240 100 300 550 0 Number 1 0 0 1 Bowel Movements Output, Urine 250 1000 205 470 370 Patient 180 lb 175 lb Weight Physical Exam: General Appearance Alert, Cooperative, Mild Distress Skin Chronic lower extremity skin changes HEENT Atraumatic, PERRLA, EOMI, Mucous Membr. moist/pink Neck Supple, +2 Carotid Pulse wo Bruit, Elevated JVD Cardiovascular Normal S1, Normal S2, Irregular rate Lungs bilateral rhonchi Abdomen Normal Bowel Sounds, Soft, No Tenderness, No Hepatospenomegaly, No Masses Neurological Normal Tone, Cranial Nerves 3-12 NL Extremities 3+ bilateral lower extremity edema Vascular Normal Pulses, Pulses Symmetrical Current Medications: Current Medications Sig/Kenia Start time Last Medication Dose Route Stop Time Status Admin Acetaminophen 650 MG Q6P PRN 10/31 0330 AC 10/31 PO 1807 Albuterol Sulfate 3 ML TID 10/31 1600 AC 11/01 INH 1335 Aspirin 81 MG DAILY 10/31 1000 AC 11/01 PO 1016 Azithromycin 500 MG AT BEDTIME 10/31 2199 AC 10/31 Dextrose/Water 250 ML IV 11/02 0000 2217 Ceftriaxone Sodium 1,000 MG AT BEDTIME 10/31 2199 AC 10/31 IV 11/02 0000 2217 Cefuroxime Sodium 250 MG Q12 11/02 1000 AC PO Furosemide 40 MG ONE ONE 11/01 0830 DC 11/01 PO 11/01 0831 1016 Guaifenesin 10 ML Q6P PRN 10/31 0245 AC PO Insulin Aspart 0 TIDAC 10/31 0800 AC 11/01 SC 1704 Ipratropium [place] 2.5 ML TID 10/31 1600 AC 11/01 INH 1335 Levothyroxine Sodium 0.05 MG DAILY AC 11/02 0700 AC PO Levothyroxine Sodium 0.025 MG DAILY AC 10/31 0700 DC 11/01 PO 0627 Magnesium Oxide 400 MG ONE ONE 11/01 0715 DC 11/01 PO 11/01 0716 0804 Metoprolol Tartrate 2.5 MG ONCE ONE 11/01 1015 DC 11/01 IV 11/01 1016 1017 Metoprolol Tartrate 12.5 MG BID 11/01 1000 AC PO Metoprolol Tartrate 25 MG .STK-MED ONE 11/01 0954 DC PO 11/01 0955 Potassium Chloride 20 MEQ .STK-MED ONE 11/01 0755 DC PO 11/01 0756 Potassium Chloride 10 MEQ ONCE ONE 11/01 0715 DC 11/01 PO 11/01 0716 0807 Pravastatin Sodium 20 MG 1700 / 1700 AC 11/01 PO 1705 Prednisone 20 MG DAILY 11/01 1000 AC 11/01 PO 11/03 1001 1017 Results Last 48 Hrs of Labs/Mics: Laboratory Tests 11/01/16 0420: Anion Gap 7, Estimated GFR > 60, Glucose 103 H, Calcium 8.6, Phosphorus 2.7, Magnesium 1.9, Total Bilirubin 0.8, AST 48, ALT 63, Albumin 2.8 L, PT 38.2 H, INR 3.69 H, CBC w Diff NO MAN DIFF REQ, RBC 3.53 L, MCV 96.1 H, MCH 32.1 H, RDW 15.0 H, MPV 9.3, Gran % 77.2 H, Lymphocytes % 13.8 L, Monocytes % 7.4, Eosinophils % 1.2, Basophils % 0.4, Absolute Granulocytes 4.2, Absolute Lymphocytes 0.8 L, Absolute Monocytes 0.4, Absolute Eosinophils 0.1, Absolute Basophils 0, PUBS MCHC 33.4 10/31/16 1115: Troponin I 0.68 *H 10/31/16 0440: Anion Gap 9, Estimated GFR 52 L, Glucose 115 H, Calcium 7.9 L, Phosphorus 3.1 , Magnesium 1.7, Total Bilirubin 0.7, AST 73 H, ALT 72, Troponin I 0.88 *H, Albumin 2.9 L, Cortisol AM Sample 15.0, PT 33.4 H, INR 3.22 H, CBC w Diff NO MAN DIFF REQ, RBC 3.56 L, MCV 96.9 H, MCH 32.5 H, RDW 14.6 H, MPV 9.0, Gran % 78.6 H, Lymphocytes % 13.3 L, Monocytes % 7.7, Eosinophils % 0.1, Basophils % 0.3, Absolute Granulocytes 5.5, Absolute Lymphocytes 0.9 L, Absolute Monocytes 0.5, Absolute Eosinophils 0, Absolute Basophils 0, PUBS MCHC 33.6 10/31/16 0256: Urine Color YEL, Urine Clarity CLEAR, Urine pH 6.0, Ur Specific [place] 1.015, Urine Protein NEG, Urine Ketones NEG, Urine Nitrite NEG, Urine Bilirubin NEG, Urine Urobilinogen 0.2, Ur Leukocyte Esterase NEG, Ur Microscopic EXAM NOT REQUIRED, Urine Hemoglobin NEG, Urine Glucose NEG 10/31/16 0256: Ur Random Creatinine 79.2, Ur Random Sodium 23 L, Ur Random Potassium 46.3, Fraction Sodium Excret 0.3 10/31/16 0116: Lactic Acid 1.2 10/30/167: Anion Gap 11, Estimated GFR 44 L, BUN/Creatinine Ratio 22.7, Glucose 219 H, Lactic Acid 2.6 H, Calcium 8.9, Total Bilirubin 0.8, AST 47, ALT 54, Alkaline Phosphatase 61, Troponin I 0.44 *H, Owr-[id number]-Ykmveobkgvq Pept 9550 H, Total Protein 5.5 L, Albumin 3.4 L, Globulin 2.1, Albumin/Globulin Ratio 1.6, TSH 2.110, Free T4 1.81, PT 28.7 H, INR 2.76 H, APTT 32, CBC w Diff NO MAN DIFF REQ, RBC 3.74 L, MCV 96.3 H, MCH 31.8 H, RDW 14.7 H, MPV 8.8, Gran % 86.2 H , Lymphocytes % 8.2 L, Monocytes % 5.4, Eosinophils % 0.1, Basophils % 0.1, Absolute Granulocytes 5.6, Absolute Lymphocytes 0.5 L, Absolute Monocytes 0.4, Absolute Eosinophils 0, Absolute Basophils 0, PUBS MCHC 33.1 Microbiology 10/31 429 UPPER RESP: Surveillance Culture - COMP 10/31 429 GI: Surveillance Culture - COMP 11/01 255 URINE ROUT: Legionella Antigen - COMP 11/01 255 URINE ROUT: Streptococcus pneumoniae Antigen (M - COMP 10/30 3867 NASOPHARYN: Influenza Virus A & B Rapid Smear - COMP Assessment/Plan Assessment/Plan Assessment: 1. Acute respiratory failure secondary to acute bronchitis 2. Hypotension 3. Chronic atrial fibrillation 4. Acute on chronic HFpEF 5. Marked LE edema secondary to venous insufficiency and PHTN 6. DM 7. Thrombocytopenia 8. Hypothyroidism 9. Acute on chronic renal insufficiency. Recommendations: - Clinically improving; continue current treatment - Stable for tansfer out of the ICU - Restart metoprolol; continue to hold lasix for now with plans to restart in AM - OOB as tolerated. Continue telemetry? No
[2016-11-02] VITALS: BP 94/50
[2016-11-02 05:25] LABS: ABSOLUTE BASOPHIL COUNT 0 /CUMM (0.0-0.2); ABSOLUTE EOSINOPHIL COUNT 0 /CUMM (0.0-0.7); ABSOLUTE GRANULOCYTE CT 3.8 /CUMM (1.4-6.5); ABSOLUTE LYMPH COUNT 0.6 /CUMM (1.2-3.4); ABSOLUTE MONOCYTE COUNT 0.4 /CUMM (0.10-0.60); BASOPHIL % 0.3 % (0.0-2.0); EOSINOPHIL % 0.1 % (0-5); GRANULOCYTE % 78.5 % (42.2-75.2); HEMATOCRIT 32.6 % (42-52); MEAN CORPUSCULAR HGB 32.1 PG (27.0-31.0); MEAN CORPUSCULAR HGB CONC 33.4 G/DL (33.0-37.0); MEAN PLATELET VOLUME 9.2 FL (7.4-10.4); PLATELET COUNT 84 /CUMM (130-400); RBC DISTRIBUTION WIDTH 14.3 % (11.5-14.5); RED BLOOD CELL CT 3.39 /CUMM (4.70-6.10); WHITE BLOOD CELL COUNT 4.8 /CUMM (4.8-10.8)
[2016-11-02 05:30] LABS: PT 38.7 SEC (9.4-12.5)
--- NOTE | 2016-11-02 07:17 | PN- Housestaff ---
Subjective Follow-up For: Acute bronchitis Atrial fibrillation Acute on chronic HFpEF Subjective: No acute events overnight. He remains afebrile. Patient seen and examined this morning. He feels improved and does not have any complaints. His breathing is improved. His appetite is good. He continues to have mild nonproductive cough. Review of Systems Constitutional: Reports: see HPI. Objective Last 24 Hrs of Vital Signs/I&O Vital Signs Date Time Temp Pulse Resp B/P Pulse O2 O2 Flow FiO2 Ox Delivery Rate 11/02 0000 97 Room Air 11/02 0000 97.0 81 20 94/50 97 Room Air 11/01 2235 54 108/60 / 1950 94 Room Air Room Air 11/01 1600 Room Air Room Air 11/01 1600 98.2 71 30 98/60 97 Room Air 11/01 1017 115 108/68 11/01 1017 108/68 11/01 0900 96 Room Air Room Air Vital Signs Date Time Temp Pulse Resp B/P Pulse O2 O2 Flow FiO2 Ox Delivery Rate 11/02 0000 97 Room Air 11/02 0000 97.0 81 20 94/50 97 Room Air 11/01 2235 54 108/60 / 1950 94 Room Air Room Air 11/01 1600 Room Air Room Air 11/01 1600 98.2 71 30 98/60 97 Room Air 11/01 1017 115 108/68 11/01 1017 108/68 11/01 0900 96 Room Air Room Air Intake & Output 11/02 1600 11/02 0800 11/02 0000 Intake Total 100 200 Output Total 300 500 Balance -200 -300 Intake, Oral 100 200 Output, Urine 300 500 Physical Exam General Appearance: Alert, Oriented X3, No Acute Distress HEENT: Mucous Membr. moist/pink Neck: Supple Cardiovascular: Normal S1, Normal S2, Irregular Rate Lungs: Rhonchi Scattered Throughout Bilateral Lung Bai Abdomen: Soft, No Tenderness, Positive Bowel Sounds Extremities: Bilateral Lower Extremities with 3+ Edema Current Medications: Current Medications Sig/Kenia Start time Last Medication Dose Route Stop Time Status Admin Acetaminophen 650 MG Q6P PRN 10/31 0330 AC 10/31 PO 1807 Albuterol Sulfate 3 ML TID 10/31 1600 AC 11/01 INH 1948 Aspirin 81 MG DAILY 10/31 1000 AC 11/01 PO 1016 Azithromycin 500 MG AT BEDTIME 10/31 2200 DC 11/01 Dextrose/Water 250 ML IV 11/02 0000 2224 Ceftriaxone Sodium 1,000 MG AT BEDTIME 10/31 2200 DC 11/01 IV 11/02 0000 2224 Cefuroxime Sodium 250 MG Q12 11/02 1000 AC PO Furosemide 40 MG ONE ONE 11/01 0830 DC 11/01 PO 11/01 0831 1016 Guaifenesin 10 ML Q6P PRN 10/31 0245 AC PO Insulin Aspart 0 TIDAC 10/31 0800 AC 11/01 SC 1704 Ipratropium [place] 2.5 ML TID 10/31 1600 AC 11/01 INH 1945 Levothyroxine Sodium 0.05 MG DAILY AC 11/02 0700 AC 11/02 PO 0603 Levothyroxine Sodium 0.025 MG DAILY AC 10/31 0700 DC 11/01 PO 0627 Metoprolol Tartrate 2.5 MG ONCE ONE 11/01 1015 DC 11/01 IV 11/01 1016 1017 Metoprolol Tartrate 12.5 MG BID 11/01 1000 AC PO Metoprolol Tartrate 25 MG .STK-MED ONE 11/01 0954 DC PO 11/01 0955 Pravastatin Sodium 20 MG 1700 10/31 1700 AC 11/01 PO 1705 Prednisone 20 MG DAILY 11/01 1000 AC 11/01 PO 11/03 1001 1017 Last 24 Hrs of Lab/Gregorio Results Last 24 Hrs of Labs/Mics: Laboratory Tests 11/02/16 0430: Anion Gap 8, Estimated GFR > 60, Glucose 149 H, Calcium 9.0, Phosphorus 2.7, Magnesium 2.1, Total Bilirubin 0.6, AST 37, ALT 60, Albumin 2.8 L, PT 38.7 H, INR 3.73 H, CBC w Diff NO MAN DIFF REQ, RBC 3.39 L, MCV 96.0 H, MCH 32.1 H, RDW 14.3, MPV 9.2, Gran % 78.5 H, Lymphocytes % 13.1 L, Monocytes % 8.0, Eosinophils % 0.1, Basophils % 0.3, Absolute Granulocytes 3.8, Absolute Lymphocytes 0.6 L, Absolute Monocytes 0.4, Absolute Eosinophils 0, Absolute Basophils 0, PUBS MCHC 33.4 Assessment/Plan Assessment: 89 y/o M with PMHx of CHF, atrial fibrillation, DVT and PE s/p IVC filter placement, CKD stage 3 and [id number] T2DM who presents with fever, chills and worsening productive cough. #Acute bronchitis: Clinically improved. Remains afebrile and without leukocytosis. Sputum culture with mixed naman. S/p 3 days of azithromycin and ceftriaxone. * Continue ceftin 250 mg PO BID. * Continue prednisone 20 mg PO daily for a total of 5 days. * TRC and nebulizer treatment with albuterol and ipratropium Q8H. #Atrial fibrillation: * Cardiology following. Appreciate their recs. * Continue prior to admission metoprolol 12.5 mg PO BID. * OK to downgrade to General Medicine per cardiology. #Acute on chronic HFpEF: ECHO with LVEF estimated at 50-55% improved from prior LVEF 45%. CXR yesterday with mild pulmonary edema. * Administer 40 mg of PO Lasix today. #NOELLE on CKD stage 3: Resolved, Cr 0.9 today. Likely pre-renal secondary to hypotension. * Monitor lytes and kidney function. * Replete to K > 4 and Mg > 2. #Thrombocytopenia: Platelets remain in the 70-80s. No evidence of bleeding. Likely chronic. * Continue to monitor platelet count. Diet: Consitent Carbohydrate 3 with 2 g Na restriction DVT PPx: ALPs CODE: FULL Problem List: 1. T2DM (type 2 diabetes mellitus) 2. Hypothyroidism 3. Thrombocytopenia 4. Acute on chronic kidney failure 5. Acute bronchitis 6. (HFpEF) heart failure with preserved ejection fraction Pain Ratin Pain Location: N/A Pain Goal: Remain pain free Pain Plan: Tylenol 650 mg PO Q6H Tomorrow's Labs & Rationales: INR to dose warfarin
[2016-11-02 08:00] VITALS: BP 118/80
--- NOTE | 2016-11-02 08:17 | NUR ---
0800: RECEIVED PT IN BED. ALERT, ORIENTED, FAMILY INTERPRETING. ON RA. LEFT LUNG RHONCHI/WHEEZE. DENIES SOB. 96% ON RA. GEN MED HOLD. ABDOMEN SOFT, +BS. HUERTA IN PLACE. BLE EDEMA +3, ALPS ON. #[address] TOLERATING C3 DIET, ACCU CHECK 123. NO COVERAGE. WILL MONITOR.
--- NOTE | 2016-11-02 08:39 | PN- Pulmonary ---
Subjective HPI/Critical Care Issues: Stable afebrile Eating ok Still has audible upperairway sounds No sig sputum CXR reviewed shows mild pulm edema with atx Objective Current Medications: Current Medications Sig/Kenia Start time Last Medication Dose Route Stop Time Status Admin Acetaminophen 650 MG Q6P PRN 10/31 0330 AC 10/31 PO 1807 Albuterol Sulfate 3 ML TID 10/31 1600 AC 11/01 INH 1948 Aspirin 81 MG DAILY 10/31 1000 AC 11/01 PO 1016 Azithromycin 500 MG AT BEDTIME 10/31 2200 DC 11/01 Dextrose/Water 250 ML IV 11/02 0000 2224 Ceftriaxone Sodium 1,000 MG AT BEDTIME 10/31 2200 DC 11/01 IV 11/02 0000 2224 Cefuroxime Sodium 250 MG Q12 11/02 1000 AC PO Guaifenesin 10 ML Q6P PRN 10/31 0245 AC PO Insulin Aspart 0 TIDAC 10/31 0800 AC 11/01 SC 1704 Ipratropium [place] 2.5 ML TID 10/31 1600 AC 11/01 INH 1945 Levothyroxine Sodium 0.05 MG DAILY AC 11/02 0700 AC 11/02 PO 0603 Levothyroxine Sodium 0.025 MG DAILY AC 10/31 0700 DC 11/01 PO 0627 Metoprolol Tartrate 2.5 MG ONCE ONE 11/01 1015 DC 11/01 IV 11/01 1016 1017 Metoprolol Tartrate 12.5 MG BID 11/01 1000 AC PO Metoprolol Tartrate 25 MG .STK-MED ONE 11/01 0954 DC PO 11/01 0955 Pravastatin Sodium 20 MG 1700 10/31 1700 AC 11/01 PO 1705 Prednisone 20 MG DAILY 11/01 1000 AC 11/01 PO 11/03 1001 1017 Intake & Output 11/02 1600 11/02 0800 03 0000 Intake Total 100 200 Output Total 300 500 Balance -200 -300 Intake, Oral 100 200 Output, Urine 300 500 Laboratory Tests 11/02 11/01 0430 0420 Chemistry Sodium (137 - 145 mmol/L) 137 138 Potassium (3.5 - 5.1 mmol/L) 4.4 3.9 Chloride (98 - 107 mmol/L) 106 107 Carbon Dioxide (22 - 30 mmol/L) 22 25 Anion Gap (5 - 16) 8 7 BUN (9 - 20 mg/dL) 21 H 21 H Creatinine (0.7 - 1.2 mg/dL) 0.9 1.0 Estimated GFR (>60 ml/min) > 60 > 60 Glucose (65 - 99 mg/dL) 149 H 103 H Calcium (8.4 - 10.2 mg/dL) 9.0 8.6 Phosphorus (2.5 - 4.5 mg/dL) 2.7 2.7 Magnesium (1.6 - 2.3 mg/dL) 2.1 1.9 Total Bilirubin (0.2 - 1.3 mg/dL) 0.6 0.8 AST (17 - 59 U/L) 37 48 ALT (21 - 72 U/L) 60 63 Albumin (3.5 - 5.0 g/dL) 2.8 L 2.8 L Coagulation PT (9.4 - 12.5 SEC) 38.7 H 38.2 H INR (0.90 - 1.17) 3.73 H 3.69 H Hematology CBC w Diff NO MAN DIFF REQ NO MAN DIFF REQ WBC (4.8 - 10.8 /CUMM) 4.8 5.4 RBC (4.70 - 6.10 /CUMM) 3.39 L 3.53 L Hgb (14.0 - 18.0 G/DL) 10.9 L 11.3 L Hct (42 - 52 %) 32.6 L 33.9 L MCV (80.0 - 94.0 FL) 96.0 H 96.1 H MCH (27.0 - 31.0 PG) 32.1 H 32.1 H RDW (11.5 - 14.5 %) 14.3 15.0 H Plt Count (130 - 400 /CUMM) 84 L 73 L MPV (7.4 - 10.4 FL) 9.2 9.3 Gran % (42.2 - 75.2 %) 78.5 H 77.2 H Lymphocytes % (20.5 - 51.1 %) 13.1 L 13.8 L Monocytes % (1.7 - 9.3 %) 8.0 7.4 Eosinophils % (0 - 5 %) 0.1 1.2 Basophils % (0.0 - 2.0 %) 0.3 0.4 Absolute Granulocytes (1.4 - 6.5 /CUMM) 3.8 4.2 Absolute Lymphocytes (1.2 - 3.4 /CUMM) 0.6 L 0.8 L Absolute Monocytes (0.10 - 0.60 /CUMM) 0.4 0.4 Absolute Eosinophils (0.0 - 0.7 /CUMM) 0 0.1 Absolute Basophils (0.0 - 0.2 /CUMM) 0 0 PUBS MCHC (33.0 - 37.0 G/DL) 33.4 33.4 10/31 1115 Chemistry Troponin I (<0.11 ng/ml) 0.68 *H Microbiology Date/Time Procedure - Status Source Growth 10/31 1005 Respiratory Culture - RES LOWER RESP 10/31 1005 Gram Stain - RES LOWER RESP 10/31 0430 Surveillance Culture - COMP UPPER RESP 10/31 043 Surveillance Culture - COMP GI 10/31 0256 Legionella Antigen - COMP URINE ROUT 10/31 0256 Streptococcus pneumoniae Antigen (M - COMP URINE ROUT 10/30 221 Influenza Virus A & B Rapid Smear - COMP NASOPHARYN 10/31 2151 Blood Culture - RES BLOOD 10/30 2126 Blood Culture - RES BLOOD Vital Signs & I&O Last 24 Hrs of Vitals and I&O: Vital Signs Date Time Temp Pulse Resp B/P Pulse O2 O2 Flow FiO2 Ox Delivery Rate 11/02 0800 Room Air 11/02 08 98.6 74 20 118/80 96 Room Air 11/02 0000 97 Room Air 11/02 0000 97.0 81 20 94/50 97 Room Air 11/01 2235 54 108/60 11/01 1950 94 Room Air Room Air 11/01 1600 Room Air Room Air 11/01 1600 98.2 71 30 98/60 97 Room Air 11/01 1017 115 108/68 11/01 1017 108/68 11/01 0900 96 Room Air Room Air Intake & Output 11/02 1600 11/02 0800 11/02 0000 Intake Total 100 200 Output Total 300 500 Balance -200 -300 Intake, Oral 100 200 Output, Urine 300 500 Impression/Plan Impression/Plan Impression/Plan: Physical Exam General Appearance Alert, Cooperative, Mild Distress Skin Chronic lower extremity skin changes HEENT Atraumatic, PERRLA, EOMI, Mucous Membr. moist/pink Neck Supple, +2 Carotid Pulse wo Bruit, Elevated JVD Cardiovascular Normal S1, Normal S2, Irregular rate Lungs Extensive rhonchi with bibasilar crackles Abdomen Normal Bowel Sounds, Soft, No Tenderness, No Hepatospenomegaly, No Masses Neurological Normal Tone, Cranial Nerves 3-12 NL Extremities 4+ bilateral lower extremity edema Vascular Normal Pulses, Pulses Symmetrical IMPRESSION This is an 89-year-old gentleman with history of reduced ejection fraction, atrial fibrillation, chronic venous insufficiency and previous MO, previous DVT PE with IVC filter with lower extremity swelling with appropriate INR on Coumadin, hypertension, hyperlipidemia, yzu-fyspmuu-okvqaifyk diabetes, states 3 chronic kidney disease now has * Increasing cough wheezing sputum production with no significant hypoxemia in a gentleman suggestive of active bronchitis. ATx in the base vs a small infiltrate * REsolved hypotension since admission * Improved ef to 55 percent, (45 percent before) * Qdm-exctjkq-kgvnzazqa diabetes hence immunosuppressed * Thrombocytopenia which appears chronic but this needs to be monitored * Previous history of multiple renal cysts rule out any other cause of infection * Lower ext no sig dvt Recommendation * Po ceftin in am * Prednisone 20 qd for total fo five days * Minimize fluids, lasix po again today please give 40 mg * Check blood pressures manually * Nebulizer treatment with albuterol and ipratropium every 8 hrs hours round- the-clock
[2016-11-02] MEDS ORDERED: METOPROLOL TART25 M1 PO (08:56)
[2016-11-02] MEDS ORDERED: COUMADIN2.5 M1 PO (08:57)
--- NOTE | 2016-11-02 09:04 | Patient Discharge Instructions ---
Discharge Instructions General Discharge Information You were seen/treated for: Acute bronchitis Congestive heart failure Atrial fibrillation Watch for these problems: Fever or chills Difficulty breathing Coughing up blood Fatigue or weakness Loss of appetite, nausea or vomiting Special Instructions: Please follow up with your primary care physician Dr. Wallace and fire engineer Dr. Scales within one week of discharge. Do not take warfarin today. Resume starting tomorrow. Please have your INR checked on 11/07/2016 and forward results to Dr. Wallace. Diet Recommended Diet: Diabetic (no added salt) Activity Additional ACTIVITY Info: As tolerated with assistance Acute Coronary Syndrome Inclusion Criteria At DC or during hospital stay patient has or had the following: ACS DIAGNOSIS No Discharge Core Measures Meds if any: Prescribed or Continued at Discharge Meds if any: NOT Prescribed or Continued at Discharge Congestive Heart Failure Inclusion Criteria At DC or during hospital stay patient has or had the following: CHF DIAGNOSIS Yes Discharge Core Measures Meds if any: Prescribed or Continued at Discharge MICHAEL/ARB for EF <40% Yes Meds if any: NOT Prescribed or Continued at Discharge Comment EF > 40% Cerebrovascular accident Inclusion Criteria At DC or during hospital stay patient has or had the following: CVA/TIA Diagnosis No Discharge Core Measures Meds if any: Prescribed or Continued at Discharge Meds if any: NOT Prescribed or Continued at Discharge Venous thromboembolism Inclusion Criteria VTE Diagnosis No VTE Type NONE VTE Confirmed by (Test) NONE Discharge Core Measures - Per Current guidelines, there needs to be overlap - treatment for the first 5 days of Warfarin therapy. - If discharged on Warfarin prior to 5 days of - overlap therapy, the patient will need to be - assessed for post discharge needs including - *Post discharge parental anticoagulation - *Warfarin and/or parental anticoagulation education - *Follow up date to check INR post discharge At least 5 days overlap therapy as Inpatient No Meds if any: Prescribed or Continued at Discharge Note: Overlap Therapy is Warfarin and Anticoagulant Meds if any: NOT Prescribed or Continued at Discharge
--- NOTE | 2016-11-02 09:44 | NUR ---
PT OOB WITH PHYSICAL THERAPY. AMBULATED WELL WITH ROLLING WALKER. PLACED IN SCOTT CHAIR.
[2016-11-02] MEDS ORDERED: PREDNISONE5 M1 PO ×2 (11:40→11:44)
[2016-11-02 16:00] VITALS: BP 118/80
--- NOTE | 2016-11-02 18:55 | PN- Cardiology ---
Subjective Subjective: Stable cardiac status with progressive improvement of the patient's respiratory status. No obvious new complaints Objective Vital Signs and I&Os Vital Signs Date Time Temp Pulse Resp B/P Pulse O2 O2 Flow FiO2 Ox Delivery Rate 11/02 1838 95 Room Air 11/02 1600 98.6 74 20 118/80 96 Room Air 11/02 0938 99 Room Air Room Air 11/02 0800 Room Air 11/02 0800 98.6 74 20 118/80 96 Room Air 11/02 0000 97 Room Air 11/02 0000 97.0 81 20 94/50 97 Room Air 11/01 2235 54 108/60 11/01 1950 94 Room Air Room Air Intake & Output 11/02 1600 11/02 0800 11/02 0000 11/01 1600 11/01 0800 11/01 0000 Intake Total 300 100 200 240 160 570 Output Total 600 300 359 245 7946 205 Balance -300 -200 -300 -10 -840 365 Intake, IV 0 60 270 Intake, Oral 300 100 200 240 100 300 Number 1 1 0 0 Bowel Movements Output, Urine 600 300 163 572 7725 205 Physical Exam: General Appearance Alert, Cooperative, Mild Distress Skin Chronic lower extremity skin changes HEENT Atraumatic, PERRLA, EOMI, Mucous Membr. moist/pink Neck Supple, +2 Carotid Pulse wo Bruit, Elevated JVD Cardiovascular Normal S1, Normal S2, Irregular rate Lungs bilateral rhonchi Abdomen Normal Bowel Sounds, Soft, No Tenderness, No Hepatospenomegaly, No Masses Neurological Normal Tone, Cranial Nerves 3-12 NL Extremities 3+ bilateral lower extremity edema Vascular Normal Pulses, Pulses Symmetrical Current Medications: Current Medications Sig/Kenia Start time Last Medication Dose Route Stop Time Status Admin Acetaminophen 650 MG Q6P PRN 10/31 0330 AC 10/31 PO 1807 Albuterol Sulfate 3 ML TID 10/31 1600 AC 11/02 INH 1831 Aspirin 81 MG DAILY 10/31 1000 AC 11/02 PO 1017 Azithromycin 500 MG AT BEDTIME 10/31 2199 DC 11/01 Dextrose/Water 250 ML IV 11/02 0000 2224 Ceftriaxone Sodium 1,000 MG AT BEDTIME 10/31 2199 DC 11/01 IV 11/02 0000 2224 Cefuroxime Sodium 250 MG Q12 11/02 1000 AC 11/02 PO 1017 Furosemide 40 MG ONE ONE 11/02 1130 DC 11/02 PO 11/02 1131 1200 Guaifenesin 10 ML Q6P PRN 10/31 0245 AC PO Insulin Aspart 0 TIDAC 10/31 0800 AC 11/02 SC 1739 Ipratropium [place] 2.5 ML TID 10/31 1600 AC 11/02 INH 1831 Levothyroxine Sodium 0.05 MG DAILY AC 11/02 0700 AC 11/02 PO 0603 Metoprolol Tartrate 12.5 MG BID 11/01 1000 AC 11/02 PO 1017 Pravastatin Sodium 20 MG 1700 10/31 1700 AC 11/02 PO 1628 Prednisone 20 MG DAILY 11/01 1000 AC 11/02 PO 11/05 1001 1017 Results Last 48 Hrs of Labs/Mics: Laboratory Tests 11/02/16 0430: Anion Gap 8, Estimated GFR > 60, Glucose 149 H, Calcium 9.0, Phosphorus 2.7, Magnesium 2.1, Total Bilirubin 0.6, AST 37, ALT 60, Albumin 2.8 L, PT 38.7 H, INR 3.73 H, CBC w Diff NO MAN DIFF REQ, RBC 3.39 L, MCV 96.0 H, MCH 32.1 H, RDW 14.3, MPV 9.2, Gran % 78.5 H, Lymphocytes % 13.1 L, Monocytes % 8.0, Eosinophils % 0.1, Basophils % 0.3, Absolute Granulocytes 3.8, Absolute Lymphocytes 0.6 L, Absolute Monocytes 0.4, Absolute Eosinophils 0, Absolute Basophils 0, PUBS MCHC 33.4 11/01/16 0420: Anion Gap 7, Estimated GFR > 60, Glucose 103 H, Calcium 8.6, Phosphorus 2.7, Magnesium 1.9, Total Bilirubin 0.8, AST 48, ALT 63, Albumin 2.8 L, PT 38.2 H, INR 3.69 H, CBC w Diff NO MAN DIFF REQ, RBC 3.53 L, MCV 96.1 H, MCH 32.1 H, RDW 15.0 H, MPV 9.3, Gran % 77.2 H, Lymphocytes % 13.8 L, Monocytes % 7.4, Eosinophils % 1.2, Basophils % 0.4, Absolute Granulocytes 4.2, Absolute Lymphocytes 0.8 L, Absolute Monocytes 0.4, Absolute Eosinophils 0.1, Absolute Basophils 0, PUBS MCHC 33.4 Assessment/Plan Assessment/Plan Assessment: 1. Acute respiratory failure secondary to acute bronchitis 2. Hypotension 3. Chronic atrial fibrillation 4. Acute on chronic HFpEF 5. Marked LE edema secondary to venous insufficiency and PHTN 6. DM 7. Thrombocytopenia 8. Hypothyroidism 9. Acute on chronic renal insufficiency. Recommendations: - Clinically improving; continue current treatment - Stable for tansfer out of the ICU - Restart metoprolol; continue to hold lasix for now with plans to restart in AM - OOB as tolerated. Continue telemetry? No
--- NOTE | 2016-11-02 20:29 | NUR ---
PT GM HOLD. JACQUELYNE SPEAKING ONLY-FAMILY AT BEDSIDE TO TRANSLATE. PT A/OX3 AT PRESENT. DENIES ANY PAIN AT PRESENT. EXP WHEEZES THOUGHOUT BILATERALLY. NONPRODUCTIVE COUGH NOTED, NO SOB OR RESP DISTRESS NOTED AT PRESENT. ABD SOFT, NONTENDER, NONDISTENDED, POSITIVE BOWEL SOUNDS. BILATERAL LOWER EXTREMITIES WITH 2-3+ EDEMA. SKIN INTACT
[2016-11-02 23:00] VITALS: BP 112/60
--- NOTE | 2016-11-03 01:24 | NUR ---
PT REQUESTING HUERTA TO BE TAKEN OUT-REPORTED TO DR. DELONG-DISCONTINUED AT 0115 ORDERED-WILL MONITOR
[2016-11-03 05:13] LABS: PT 39.9 SEC (9.4-12.5)
--- NOTE | 2016-11-03 06:58 | NUR ---
PT SLEPT ON AND OFF DURING THE NIGHT. HAS NOT VOIDED SINCE HUERTA DISCONTINUED-PT BLADDER [id number] MONITOR. NO OTHER CHANGES IN PT ASSESSMENTS THOUGHOUT SHIFT
[2016-11-03 08:00] VITALS: BP 100/70
--- NOTE | 2016-11-03 08:13 | PN- Housestaff ---
WALESKA DALTON,HARMONY 11/03/16 0812: Subjective Follow-up For: Acute bronchitis Atrial fibrillation Acute on chronic HFpEF Complaints: no complaints Subjective: I followed up and examined the patient today. She is lying comfortably in his bed, is alert, oriented and is not in any acute distress. His vitals have been stable overnight and no issues overnight reported. Review of Systems Constitutional: Reports: no symptoms, see HPI. EENTM: Reports: no symptoms. Cardiovascular: Reports: no symptoms. Respiratory: Reports: no symptoms. Gastrointestinal: Reports: no symptoms. Genitourinary: Reports: no symptoms. Musculoskeletal: Reports: no symptoms. Skin: Reports: no symptoms. Neurological/Psychological: Reports: no symptoms. Objective Last 24 Hrs of Vital Signs/I&O Vital Signs Date Time Temp Pulse Resp B/P Pulse O2 O2 Flow FiO2 Ox Delivery Rate 11/03 1600 100 Room Air Room Air 11/03 1600 97.6 78 22 106/62 100 Room Air Room Air 11/03 0949 97.6 61 22 100/70 11/03 0851 98 Room Air Room Air 11/03 0800 97 Room Air Room Air 11/03 0800 97.6 61 22 100/70 97 Room Air Room Air 11/03 0000 96 Room Air Room Air 11/02 2300 97.8 60 24 112/60 96 Room Air Room Air 11/02 2118 97.8 60 24 112/60 11/02 1838 95 Room Air Intake & Output 11/03 1600 11/03 0800 11/03 0000 Intake Total 600 60 240 Output Total 600 140 850 Balance 0 -80 -610 Intake, Oral 600 60 240 Number 1 0 Bowel Movements Output, Urine 600 140 850 Patient 81.647 kg Weight Physical Exam General Appearance: Alert, Oriented X3, Cooperative, No Acute Distress Other Physical Findings: HEENT: Mucous Membr. moist/pink Neck: Supple Cardiovascular: Normal S1, Normal S2, Irregular Rate Lungs: Rhonchi Scattered Throughout Bilateral Lung Bai Abdomen: Soft, No Tenderness, Positive Bowel Sounds Extremities: Bilateral Lower Extremities with 3+ Edema Current Medications: Current Medications Sig/Kenia Start time Last Medication Dose Route Stop Time Status Admin Acetaminophen 650 MG Q6P PRN 10/31 0330 AC 10/31 PO 1807 Albuterol Sulfate 3 ML TID 10/31 1600 AC 11/03 INH 1347 Amoxicillin/ 875 MG Q12 11/03 2200 AC Clavulanate Potassium PO Aspirin 81 MG DAILY 10/31 1000 DC 11/03 PO 0948 Cefuroxime Sodium 250 MG Q12 11/02 1000 DC 11/03 PO 0948 Guaifenesin 10 ML Q6P PRN 10/31 0245 AC PO Insulin Aspart 0 TIDAC 10/31 0800 AC 11/03 SC 1655 Ipratropium [place] 2.5 ML TID 10/31 1600 AC 11/03 INH 1347 Levothyroxine Sodium 0.05 MG DAILY AC 11/02 0700 AC 11/03 PO 0613 Metoprolol Tartrate 25 MG .STK-MED ONE 11/03 0945 DC PO 11/03 0946 Metoprolol Tartrate 12.5 MG BID 11/01 1000 AC 11/03 PO 0949 Pravastatin Sodium 20 MG 1700 10/31 1700 AC 11/03 PO 1655 Prednisone 20 MG DAILY 11/01 1000 AC 11/03 PO 11/05 1001 0948 Last 24 Hrs of Lab/Gregorio Results Last 24 Hrs of Labs/Mics: Laboratory Tests 11/03/16 0436: PT 39.9 H, INR 3.85 H Assessment/Plan Assessment: 89 y/o M with PMHx of CHF, atrial fibrillation, DVT and PE s/p IVC filter placement, CKD stage 3 and nju-[id number] T2DM who presents with fever, chills and worsening productive cough. #Acute bronchitis: Clinically improved. Remains afebrile and without leukocytosis. Sputum culture with mixed naman. S/p 3 days of azithromycin and ceftriaxone. * Ceftin changed to Augmentin as LRC is positive for Klebsella pneumoniae and Staph aureus * Continue prednisone 20 mg PO daily for a total of 5 days. today day 3 * TRC and nebulizer treatment with albuterol and ipratropium Q8H. #Atrial fibrillation: * Cardiology following. Appreciate their recs. * Continue prior to admission metoprolol 12.5 mg PO BID. * INR remains persistantly high, possibly due to antibiotics. Meds checked if they interfere with warfarin. #Acute on chronic HFpEF: ECHO with LVEF estimated at 50-55% improved from prior LVEF 45%. CXR yesterday with mild pulmonary edema. * 40 mg of PO Lasix given yesterday only. None today. #NOELLE on CKD stage 3: Resolved, Cr 0.9 today. Likely pre-renal secondary to hypotension. * Monitor lytes and kidney function. * Replete to K > 4 and Mg > 2. #Thrombocytopenia: Platelets remain in the 70-80s. No evidence of bleeding. Likely chronic. * Continue to monitor platelet count. totay it's 82. Diet: Consitent Carbohydrate 3 with 2 g Na restriction DVT PPx: ALPS CODE: FULL CODE Problem List: 1. Bronchitis 2. CHF (congestive heart failure) 3. Afib 4. Thrombocytopenia Pain Ratin Pain Location: - Pain Goal: Pain 4 or less Pain Plan: prn Tomorrow's Labs & Rationales: CBC, BEP, Mg, INR CHRISTOPHER DALTON,[facility] 11/03/16 1445: Attending MD Review Statement Attending Statement Attending MD Statement: examined this patient, discuss w/resident/PA/CHARGEM[employer] SPECIALIST, reviewed EMR data (avail), reviewed images, amended to note (see my note)
--- NOTE | 2016-11-03 10:45 | PN- Pulmonary ---
Subjective HPI/Critical Care Issues: The patient is awake and alert. He is feeling better overall. He is walking with physical therapy. There were no overnight events. Objective Current Medications: Current Medications Sig/Kenia Start time Last Medication Dose Route Stop Time Status Admin Acetaminophen 650 MG Q6P PRN 10/31 0330 AC 10/31 PO 1807 Albuterol Sulfate 3 ML TID 10/31 1600 AC 11/03 INH 0848 Aspirin 81 MG DAILY 10/31 1000 AC 11/03 PO 0948 Cefuroxime Sodium 250 MG Q12 11/02 1000 AC 11/03 PO 0948 Furosemide 40 MG ONE ONE 11/02 1130 DC 11/02 PO 11/02 1131 1200 Guaifenesin 10 ML Q6P PRN 10/31 0245 AC PO Insulin Aspart 0 TIDAC 10/31 0800 AC 11/02 SC 1739 Ipratropium [place] 2.5 ML TID 10/31 1600 AC 11/03 INH 0848 Levothyroxine Sodium 0.05 MG DAILY AC 11/02 0700 AC 11/03 PO 0613 Metoprolol Tartrate 12.5 MG BID 11/01 1000 AC 11/03 PO 0949 Pravastatin Sodium 20 MG 1700 10/31 1700 AC 11/02 PO 1628 Prednisone 20 MG DAILY 11/01 1000 AC 11/03 PO 11/05 1001 0948 Vital Signs & I&O Last 24 Hrs of Vitals and I&O: Vital Signs Date Time Temp Pulse Resp B/P Pulse O2 O2 Flow FiO2 Ox Delivery Rate 11/03 0949 97.6 61 22 100/70 11/03 0851 98 Room Air Room Air 11/03 0000 96 Room Air Room Air 11/02 2300 97.8 60 24 112/60 96 Room Air Room Air 11/02 2118 97.8 60 24 112/60 11/02 1838 95 Room Air 11/02 1600 98.6 74 20 118/80 96 Room Air Intake & Output 11/03 1600 11/03 0800 11/03 0000 Intake Total 60 240 Output Total 140 850 Balance -80 -610 Intake, Oral 60 240 Number 1 0 Bowel Movements Output, Urine 140 850 Exam General Appearance: no apparent distress, alert, awake Head: atraumatic, normal appearance Neck: supple Respiratory: bilateral ronchi with bibasilar crackles Cardiovascular: S1 and S2 heard, irregular Abdomen: normal bowel sounds, soft, non-tender Extremities: bilateral lower extremity edema Skin: intact, normal color, warm/dry Results Last 24 Hrs of Lab Results: Laboratory Tests 11/03/16 0436: PT 39.9 H, INR 3.85 H Impression/Plan Impression/Plan Impression/Plan: 1. Acute bronchitis versus basilar pneumonia. 2. Resolved hypotension. 3. Atrial fibrillation, on coumadin. 4. 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 5. Hypertension. 6. Hyperlipidemia. 7. Lij-ofzurwh-ekicxvisq diabetes. 8. Stage III chronic kidney disease. Recommendations: * Continue oral Ceftin. * Complete prednisone course. * Diuresis as per cardiology. * Continue nebulizer treatments/Duonebs every 8 hours. * Increase activity/physical therapy to continue. * Continue all supportive care.
--- NOTE | 2016-11-03 13:21 | CT SCAN REPORT ---
EXAMINATION: CT CHEST WITHOUT CONTRAST CLINICAL INFORMATION: Shortness of breath. Positive sputum culture. Presumptive diagnosis of pneumonia. COMPARISON: CT pulmonary angiogram dated 02/19/2014. TECHNIQUE: Multidetector volumetric CT imaging of the chest was obtained noncontrast. Sagittal and coronal reformations were obtained. DLP: 558.76 mGy-cm. FINDINGS: LUNGS: Small bilateral pleural effusions are seen, new from prior exam associated volume loss and consolidation is seen in the right lower lobe with only a small amount of aeration remaining in the superior segment. Air bronchograms are seen through the consolidated segment of the right lower lobe. There is also volume loss and dependent atelectasis in the left lower lobe and in the right upper lobe adjacent to the fissure. There is significant narrowing of the central airways, in particular of the bronchus intermedius and the right middle and right lower lobe bronchi with associated ill-defined surrounding soft tissue density, possibly related to adenopathy and adjacent lung consolidation as well as slight mass effect by the enlarged central vessels. VASCULAR STRUCTURES: Ascending aorta borderline aneurysmal, measuring 3.9 cm in maximal AP diameter at the level of the right main pulmonary artery, unchanged. Descending aorta at the same level measures 3.2 cm and the aortic arch just beyond the takeoff of the left subclavian artery measures 3.1 cm. Mild atherosclerotic calcifications of the aorta and coronary arteries is seen. Moderate aortic valvular calcifications is seen. Heart size is enlarged with four-chamber enlargement seen, suggestive of a dilated cardiomyopathy. Central pulmonary arteries are enlarged with the right main pulmonary artery measuring 2.7 cm and the left main pulmonary artery 2.8 cm, suggesting pulmonary arterial hypertension. No pericardial effusion. LYMPHATIC STRUCTURES: No mediastinal or axillary adenopathy. Hilar structures difficult to assess without intravenous contrast. Bilateral small hilar lymph nodes are suspected as seen on prior CT scan. THYROID GLAND: Unremarkable to the extent included. UPPER ABDOMEN: Bilateral renal cysts are again seen, unchanged. Included portions of pancreas appear atrophic. Liver and spleen and both adrenal glands appear unremarkable to the extent included, except for an incidental tiny calcified granuloma in the right lobe of the liver. Gallbladder mildly dilated. BONES: Severe degenerative changes are seen in the right shoulder joint and moderate degenerative change in the left shoulder joint. Multilevel moderate vertebral spondylosis is seen throughout the thoracic spine with ossification of the anterior longitudinal ligament. IMPRESSION: 1. Interval development of small bilateral pleural effusions and progressive consolidation and volume loss in the right lower lobe. Findings are suspicious for pneumonia. 2. Narrowing of the central airways with surrounding soft tissue thickening, possibly related to adenopathy and/or surrounding consolidation. Findings are poorly assessed on noncontrast exam. 3. Mild dependent atelectasis in left lower lobe and in right upper lobe. 4. Borderline ascending aortic aneurysm, unchanged. 5. Four-chamber dilatation of the heart, suspicious for dilated cardiomyopathy. The previously demonstrated left atrial filling defects/thrombi poorly appreciated on noncontrast exam. 6. Bilateral renal cysts.
--- NOTE | 2016-11-03 14:55 | PN- Att Addend ---
Attending Addendum Attending Brief Note I have personally seen and examined this patient. I have personally reviewed all relevant imaging and laboratory data. I have discussed the case with the care team. 1. Acute respiratory failure secondary to acute bronchitis 2. Hypotension 3. Chronic atrial fibrillation on AC 4. Acute on chronic HFpEF 5. LE edema secondary to venous insufficiency and PHTN 6. DM 7. Thrombocytopenia 8. Hypothyroidism 9. Acute on chronic renal insufficiency. The patient feels quite well today. We have stopped daily aspirin given the thrombocytopenia and full anticoagulation. Continue to follow INR trend while holding Coumadin for now. Pulmonary input reviewed. Resume Lasix at 40 mg by mouth daily. Discontinue telemetry. Aldo Barron MD [facility]
[2016-11-03 16:00] VITALS: BP 106/62
--- NOTE | 2016-11-03 21:01 | NUR ---
PT GM HOLD. ALERT, ORIENTED X3. FAMILY TRANSLATING FOR PT. FOLLOWS COMMANDS. DENIES ANY PAIN AT PRESENT. BREATH SOUNDS RT LUNG WITH RHONCI, FINE EXP WHEEZES LT LUNG, NONPRODUCTIVE COUGH NOTED. NO SOB OR RESP DISTRESS NOTED AT PRESENT. ABD SOFT, NONTENDER, NONDISTENDED, POSITIVE BOWEL SOUNDS. VOIDS. SKIN INTACT. RT FOOT WITH 3+ EDEMA, BLE 2+ EDEMA
[2016-11-03 23:00] VITALS: BP 104/60
[2016-11-04 06:28] LABS: ABSOLUTE BASOPHIL COUNT 0 /CUMM (0.0-0.2); ABSOLUTE EOSINOPHIL COUNT 0 /CUMM (0.0-0.7); ABSOLUTE GRANULOCYTE CT 5.2 /CUMM (1.4-6.5); ABSOLUTE LYMPH COUNT 1.2 /CUMM (1.2-3.4); ABSOLUTE MONOCYTE COUNT 0.6 /CUMM (0.10-0.60); BASOPHIL % 0.3 % (0.0-2.0); EOSINOPHIL % 0.2 % (0-5); GRANULOCYTE % 74.3 % (42.2-75.2); HEMATOCRIT 36.1 % (42-52); MEAN CORPUSCULAR HGB 31.9 PG (27.0-31.0); MEAN CORPUSCULAR HGB CONC 32.9 G/DL (33.0-37.0); MEAN CORPUSCULAR VOLUME 96.8 FL (80.0-94.0); RBC DISTRIBUTION WIDTH 14.9 % (11.5-14.5); RED BLOOD CELL CT 3.73 /CUMM (4.70-6.10)
[2016-11-04 06:33] LABS: PT 34.2 SEC (9.4-12.5)
[2016-11-04 06:45] LABS: PLATELET COUNT 155 /CUMM (130-400)
--- NOTE | 2016-11-04 07:25 | NUR ---
PT SLEPT MOST OF NIGHT. NO C/O PAIN THOUGHOUT SHIFT. OOB TO COMMODE WITH ROLLING WALKER AND ASSIST OF 1
[2016-11-04 08:00] VITALS: BP 108/70
--- NOTE | 2016-11-04 08:15 | PN- Housestaff ---
GERTRUDE DALTON,IMGE 11/04/16 0815: Subjective Follow-up For: Acute bronchitis Acute on chronic HFpEF Atrial fibrillation Supratherapeutic INR Thrombocytopenia Subjective: No acute events overnight. Patient was seen and examined this morning. He feels well and offers no complaints. Review of Systems Constitutional: Reports: no symptoms. Objective Last 24 Hrs of Vital Signs/I&O Vital Signs Date Time Temp Pulse Resp B/P Pulse O2 O2 Flow FiO2 Ox Delivery Rate 11/04 0856 97.8 97 20 108/70 11/04 0854 97 Room Air 11/04 0800 Room Air 11/04 0800 97.8 97 20 108/70 96 Room Air 03 0000 96 Room Air Room Air 11/03 2300 97.8 48 20 104/60 96 Room Air Room Air 11/03 2126 48 18 104/70 11/03 2008 94 Room Air Room Air 11/03 1600 100 Room Air Room Air 11/03 1600 97.6 78 22 106/62 100 Room Air Room Air Vital Signs Date Time Temp Pulse Resp B/P Pulse O2 O2 Flow FiO2 Ox Delivery Rate 11/04 0856 97.8 97 20 108/70 11/04 0854 97 Room Air 11/04 0800 Room Air 11/04 0800 97.8 97 20 108/70 96 Room Air 03 0000 96 Room Air Room Air 11/03 2300 97.8 48 20 104/60 96 Room Air Room Air 11/03 2126 48 18 104/70 11/03 2008 94 Room Air Room Air 11/03 1600 100 Room Air Room Air 11/03 1600 97.6 78 22 106/62 100 Room Air Room Air Intake & Output 11/04 1600 12 0800 11/04 0000 Intake Total 400 60 12 Output Total 200 100 Balance 400 -140 -88 Intake, Oral 400 60 12 Number 1 1 0 Bowel Movements Output, Urine 200 100 Physical Exam General Appearance: Alert, No Acute Distress, Awake HEENT: Mucous Membr. moist/pink Neck: Supple Cardiovascular: Normal S1, Normal S2, Irregularly Irregular Lungs: Bibasilar Crackles, Rhonchi Scattered Throughout Bilateral Lung Bai Abdomen: Soft, No Tenderness, Positive Bowel Sounds Extremities: Trace Edema on Bilateral Lower Extremities Current Medications: Current Medications Sig/Kenia Start time Last Medication Dose Route Stop Time Status Admin Acetaminophen 650 MG Q6P PRN 10/31 0330 AC 10/31 PO 1807 Albuterol Sulfate 3 ML TID 10/31 1600 AC 11/04 INH 1412 Amoxicillin/ 875 MG Q12 11/03 2200 AC 11/04 Clavulanate Potassium PO 0856 Furosemide 40 MG DAILY 11/04 1000 AC 11/04 PO 1005 Guaifenesin 10 ML Q6P PRN 10/31 0245 AC PO Insulin Aspart 0 TIDAC 10/31 0800 AC 11/04 SC 1141 Ipratropium [place] 2.5 ML TID 10/31 1600 AC 11/04 INH 1412 Levothyroxine Sodium 0.05 MG DAILY AC 11/02 0700 AC 11/04 PO 0704 Metoprolol Tartrate 12.5 MG BID 11/01 1000 AC 11/04 PO 0856 Patient Medication 1 UNIT ONE NR 11/04 0930 MS Teaching ED 11/04 1000 Pravastatin Sodium 20 MG 1700 /08 1700 AC 11/03 PO 1655 Prednisone 20 MG DAILY 11/01 1000 AC 11/04 PO 11/05 1001 0856 Last 24 Hrs of Lab/Gregorio Results Last 24 Hrs of Labs/Mics: Laboratory Tests 11/04/16 0522: Anion Gap 10, Estimated GFR > 60, Glucose 123 H, Calcium 9.7, Phosphorus 3.5, Magnesium 2.2, Total Bilirubin 0.8, AST 41, ALT 65, Albumin 3.4 L, PT 34.2 H, INR 3.30 H, CBC w Diff NO MAN DIFF REQ, RBC 3.73 L, MCV 96.8 H, MCH 31.9 H, RDW 14.9 H, MPV 9.0, Gran % 74.3, Lymphocytes % 16.7 L, Monocytes % 8.5, Eosinophils % 0.2, Basophils % 0.3, Absolute Granulocytes 5.2, Absolute Lymphocytes 1.2, Absolute Monocytes 0.6, Absolute Eosinophils 0, Absolute Basophils 0, PUBS MCHC 32.9 L Assessment/Plan Assessment: 89 y/o M with PMHx of CHF, atrial fibrillation, DVT and PE s/p IVC filter placement, CKD stage 3 and [id number]-tyuzuhdfr T2DM who presents with fever, chills and worsening productive cough. #Acute bronchitis vs pneumonia: Clinically improved. Remains afebrile and without leukocytosis. CT Chest with progressive consolidation and volume loss in the right lower lobe, suspicious for pneumonia. S/p 3 days of azithromycin and ceftriaxone (10/30-11/01), followed by Ceftin (11/02-11/03), switched to Augmentin yesterday, based on sputum Cx growing Klebsiella pneumoniae sensitive to cefazolin and Augmentin and MSSA sensitive to all antibiotics tested. * Continue Augmentin 875 mg PO BID. * Continue prednisone 20 mg PO daily for a total of 5 days (11/01-11/05). * TRC and nebulizer treatment with albuterol and ipratropium Q8H. * Continue physical therapy. #Acute on chronic HFpEF: ECHO with LVEF estimated at 50-55% improved from prior LVEF 45%. * Cardiology following. Appreciate their recs. * Resume Lasix at 40 mg PO daily. * Monitor I/Os and daily BMPs. #Atrial fibrillation: INR has improved to 3.30 today. Likely secondary to vitamin K deficiency in the setting of poor oral intake, with possible contribution from antibiotics. * Continue prior to admission metoprolol 12.5 mg PO BID. * Continue to hold warfarin in the setting of supratherapeutic INR. * Continue to monitor INR. #Suspected aspiration: Reported episode of coughing after drinking. * Swallow eval requested. #NOELLE on CKD stage 3: BUN/Cr 25/1.1 today, slightly increased from 21/0.9 yesterday. Likely pre-renal. * Monitor lytes and kidney function. #Thrombocytopenia: Resolved. Platelet count has improved to 155 today. Likely secondary to acute infection. * NTD. Diet: Consistent Carbohydrate 3 with 2 g Na restriction DVT PPx: ALPs CODE: FULL CODE Problem List: 1. Acute on chronic kidney failure 2. (HFpEF) heart failure with preserved ejection fraction 3. Thrombocytopenia 4. Hypothyroidism 5. T2DM (type 2 diabetes mellitus) 6. HFrEF (heart failure with reduced ejection fraction) 7. Acute bronchitis 8. Atrial fibrillation 9. Supratherapeutic INR Pain Ratin Pain Location: N/A Pain Goal: Remain pain free Pain Plan: Tylenol 650 mg PO Q6H PRN Tomorrow's Labs & Rationales: BMP to monitor kidney function and lytes in the setting of NOELLE and diuresis INR in the setting of supratherapeutic INR [facility]/04[facility]16 1358: Attending MD Review Statement Attending Statement Attending MD Statement: examined this patient, discuss w/resident/PA/PHOTOGRAPHY ASSISTANT, reviewed EMR data (avail), discussed with nursing, reviewed images, amended to note (see my note)
--- NOTE | 2016-11-04 10:46 | PN- Pulmonary ---
Subjective HPI/Critical Care Issues: The patient is awake and alert. He reports feeling improved overall. He still has some shortness of breath however this has improved since admission. He offers no new complaints today. The patient was changed to Augmentin as his lower respiratory culture was positive for Klebsiella and staph aureus. Objective Current Medications: Current Medications Sig/Kenia Start time Last Medication Dose Route Stop Time Status Admin Acetaminophen 650 MG Q6P PRN 10/31 0330 AC 10/31 PO 1807 Albuterol Sulfate 3 ML TID 10/31 1600 AC 11/04 INH 0839 Amoxicillin/ 875 MG Q12 11/03 2200 AC 11/04 Clavulanate Potassium PO 0856 Aspirin 81 MG DAILY 10/31 1000 DC 11/03 PO 0948 Cefuroxime Sodium 250 MG Q12 11/02 1000 DC 11/03 PO 0948 Furosemide 40 MG DAILY 11/04 1000 AC 11/04 PO 1005 Guaifenesin 10 ML Q6P PRN 10/31 0245 AC PO Insulin Aspart 0 TIDAC 10/31 0800 AC 11/03 SC 1655 Ipratropium [place] 2.5 ML TID 10/31 1600 AC 11/04 INH 0839 Levothyroxine Sodium 0.05 MG DAILY AC 11/02 0700 AC 11/04 PO 0704 Metoprolol Tartrate 12.5 MG BID 11/01 1000 AC 11/04 PO 0856 Patient Medication 1 UNIT ONE NR 11/04 0930 DC Teaching ED 11/04 1000 Pravastatin Sodium 20 MG 1700 /08 1700 AC 11/03 PO 1655 Prednisone 20 MG DAILY 11/01 1000 AC 11/04 PO 11/05 1001 0856 Vital Signs & I&O Last 24 Hrs of Vitals and I&O: Vital Signs Date Time Temp Pulse Resp B/P Pulse O2 O2 Flow FiO2 Ox Delivery Rate 11/04 0856 97.8 97 20 108/70 11/04 0854 97 Room Air 11/04 0800 Room Air 11/04 0800 97.8 97 20 108/70 96 Room Air 11/04 0000 96 Room Air Room Air 11/03 2300 97.8 48 20 104/60 96 Room Air Room Air 11/03 2126 48 18 104/70 11/03 2008 94 Room Air Room Air 11/03 1600 100 Room Air Room Air 11/03 1600 97.6 78 22 106/62 100 Room Air Room Air Intake & Output 11/04 1600 11/04 0800 03 0000 Intake Total 60 12 Output Total 200 100 Balance -140 -88 Intake, Oral 60 12 Number 1 0 Bowel Movements Output, Urine 200 100 Exam General Appearance: no apparent distress, alert, awake Head: atraumatic, normal appearance Neck: supple Respiratory: bilateral ronchi with bibasilar crackles Cardiovascular: S1 and S2 heard, irregular Abdomen: normal bowel sounds, soft, non-tender Extremities: trace bilateral lower extremity edema Skin: intact, normal color, warm/dry Results Last 24 Hrs of Lab Results: Laboratory Tests 11/04/16 0522: Anion Gap 10, Estimated GFR > 60, Glucose 123 H, Calcium 9.7, Phosphorus 3.5, Magnesium 2.2, Total Bilirubin 0.8, AST 41, ALT 65, Albumin 3.4 L, PT 34.2 H, INR 3.30 H, CBC w Diff NO MAN DIFF REQ, RBC 3.73 L, MCV 96.8 H, MCH 31.9 H, RDW 14.9 H, MPV 9.0, Gran % 74.3, Lymphocytes % 16.7 L, Monocytes % 8.5, Eosinophils % 0.2, Basophils % 0.3, Absolute Granulocytes 5.2, Absolute Lymphocytes 1.2, Absolute Monocytes 0.6, Absolute Eosinophils 0, Absolute Basophils 0, PUBS MCHC 32.9 L Impression/Plan Impression/Plan Impression/Plan: 1. Acute bronchitis versus basilar pneumonia. 2. Resolved hypotension. 3. Atrial fibrillation, on coumadin. 4. 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 5. Hypertension. 6. Hyperlipidemia. 7. Whi-imkidkg-mfoibqgxt diabetes. 8. Stage III chronic kidney disease. Recommendations: * Continue oral Augmentin. * Complete prednisone course. * Diuresis as per cardiology. * Continue nebulizer treatments/Duonebs every 8 hours. * Increase activity/physical therapy to continue. * Continue all supportive care.
--- NOTE | 2016-11-04 14:03 | PN- Att Addend ---
Attending Addendum Attending Brief Note I have personally seen and examined this patient. I have personally reviewed all relevant imaging and laboratory data. I have discussed the case with the care team. 1. Acute respiratory failure secondary to acute bronchitis/PNA 2. Hypotension, improved 3. Chronic atrial fibrillation on AC 4. Acute on chronic HFpEF 5. LE edema secondary to venous insufficiency and PHTN 6. DM 7. Thrombocytopenia, improving 8. Hypothyroidism 9. Acute on chronic renal insufficiency. Patient continues to feel well. He did tell me that he was having some coughing after drinking and swallow evaluation is requested. Warfarin remains on hold and INR is now trending down. Platelets have improved today. Pulmonary input reviewed. He is currently on oral antibiotics. We have restarted Lasix at 40 mg by mouth daily and will monitor volume status and metabolic panels. We discontinued his telemetry. Aldo Barron MD [facility]
[2016-11-04 16:00] VITALS: BP 110/74
[2016-11-04 23:31] VITALS: BP 100/60
--- NOTE | 2016-11-04 23:38 | NUR ---
PT A/0 X 3 GUAJARDO TO COMMAND BBS WITH CRACKLES AT BASES O2 SAT 94% ON R/A NO ACUTE RESP DISTRESS. FAMILY REMAINS AT BEDSIDE FOR TRANSLATION. PT REFUSING BACK CARE AND PM CARE. LLE EDEMATOUS WARM TO TOUCH DENIES PAIN.
[2016-11-05 04:46] LABS: PT 27.6 SEC (9.4-12.5)
[2016-11-05 04:49] LABS: ABSOLUTE BASOPHIL COUNT 0 /CUMM (0.0-0.2); ABSOLUTE EOSINOPHIL COUNT 0 /CUMM (0.0-0.7); ABSOLUTE GRANULOCYTE CT 4.4 /CUMM (1.4-6.5); ABSOLUTE LYMPH COUNT 0.9 /CUMM (1.2-3.4); ABSOLUTE MONOCYTE COUNT 0.5 /CUMM (0.10-0.60); BASOPHIL % 0.2 % (0.0-2.0); EOSINOPHIL % 0.3 % (0-5); GRANULOCYTE % 74.9 % (42.2-75.2); HEMATOCRIT 34.1 % (42-52); MEAN CORPUSCULAR HGB 31.6 PG (27.0-31.0); MEAN CORPUSCULAR HGB CONC 32.7 G/DL (33.0-37.0); MEAN CORPUSCULAR VOLUME 96.6 FL (80.0-94.0); MEAN PLATELET VOLUME 8.7 FL (7.4-10.4); PLATELET COUNT 148 /CUMM (130-400); RBC DISTRIBUTION WIDTH 14.8 % (11.5-14.5); RED BLOOD CELL CT 3.53 /CUMM (4.70-6.10); WHITE BLOOD CELL COUNT 5.9 /CUMM (4.8-10.8)
--- NOTE | 2016-11-05 07:17 | PN- Housestaff ---
Subjective Follow-up For: Acute bronchitis Acute on chronic HFpEF Atrial fibrillation Supratherapeutic INR Subjective: No acute events overnight. Patient seen and examined this morning. He continues to feel well and has no complaints. Review of Systems Constitutional: Denies: chills, fever. Cardiovascular: Denies: chest pain. Respiratory: Reports: cough. Denies: short of breath, sputum production. Gastrointestinal: Denies: nausea, vomiting. Objective Last 24 Hrs of Vital Signs/I&O Vital Signs Date Time Temp Pulse Resp B/P Pulse O2 O2 Flow FiO2 Ox Delivery Rate 11/05 0856 96 Room Air Room Air 11/05 0800 98.8 60 20 108/72 93 Room Air 11/04 2331 94 Room Air 11/04 2331 97.2 61 18 100/60 94 Room Air 11/04 2105 61 100/60 11/04 2025 95 Room Air Room Air 11/04 1600 95 Room Air Room Air 11/04 1600 97.4 84 20 110/74 95 Room Air Room Air Intake & Output 11/05 1600 11/05 0800 11/05 0000 Intake Total 100 300 Output Total 125 275 Balance -25 25 Intake, Oral 100 300 Output, Urine 125 275 Physical Exam General Appearance: Alert, No Acute Distress, Awake HEENT: Atraumatic, Mucous Membr. moist/pink Neck: Supple Cardiovascular: Normal S1, Normal S2, Irregularly Irregular Lungs: Bibasilar Crackles, Rhonchi Scattered Throughout Bilateral Lung Bai Abdomen: Soft, No Tenderness, Positive Bowel Sounds Extremities: No Clubbing, No Cyanosis, 1+ Edema on Bilateral Lower Extremities Current Medications: Current Medications Sig/Kenia Start time Last Medication Dose Route Stop Time Status Admin Acetaminophen 650 MG Q6P PRN 10/31 0330 AC 10/31 PO 1807 Albuterol Sulfate 3 ML TID 10/31 1600 AC 11/05 INH 0805 Amoxicillin/ 875 MG Q12 11/03 2200 AC 11/05 Clavulanate Potassium PO 1029 Furosemide 40 MG DAILY 11/04 1000 AC 11/05 PO 1030 Guaifenesin 10 ML Q6P PRN 10/31 0245 AC PO Insulin Aspart 0 TIDAC 10/31 0800 AC 11/05 SC 0823 Ipratropium [place] 2.5 ML TID 10/31 1600 AC 11/05 INH 0805 Levothyroxine Sodium 0.05 MG DAILY AC 11/02 0700 AC 11/05 PO 0613 Metoprolol Tartrate 12.5 MG BID 11/01 1000 AC 11/05 PO 1030 Pravastatin Sodium 20 MG 1700 10/31 1700 AC 11/04 PO 1626 Prednisone 20 MG DAILY 11/01 1000 DC 11/05 PO 11/05 1001 1030 Warfarin Sodium 2.5 MG COUMADIN 1700 ONE 11/05 1130 DC 11/05 PO 11/05 1131 1237 Last 24 Hrs of Lab/Gregorio Results Last 24 Hrs of Labs/Mics: Laboratory Tests 11/05/16 0425: Anion Gap 6, Estimated GFR > 60, BUN/Creatinine Ratio 24.0, PT 27.6 H, INR 2.65 H, CBC w Diff NO MAN DIFF REQ, RBC 3.53 L, MCV 96.6 H, MCH 31.6 H, RDW 14.8 H, MPV 8.7, Gran % 74.9, Lymphocytes % 15.3 L, Monocytes % 9.3, Eosinophils % 0.3, Basophils % 0.2, Absolute Granulocytes 4.4, Absolute Lymphocytes 0.9 L, Absolute Monocytes 0.5, Absolute Eosinophils 0, Absolute Basophils 0, PUBS MCHC 32.7 L Assessment/Plan Assessment: 89 y/o M with PMHx of CHF, atrial fibrillation on warfarin, DVT and PE s/p IVC filter placement, CKD stage 3 and tnm-wjvvrav-fiktbcejt T2DM who presents with fever, chills and worsening productive cough. #Acute bronchitis: Clinically improved. Remains afebrile and without leukocytosis. CT Chest with progressive consolidation and volume loss in the right lower lobe, suspicious for atelectasis vs small infiltrate. S/p 3 days of azithromycin and ceftriaxone (10/30-11/01), followed by Ceftin (11/02-11/03) and Augmentin (11/03-). Sputum Cx growing Klebsiella pneumoniae sensitive to cefazolin and Augmentin and MSSA sensitive to all antibiotics tested. * Will complete 7-day course of antibiotics today. Will take the remaining dose of Augmentin 875 mg after discharge. * Continue prednisone taper on discharge: 10 mg daily for 3 more days (11/06-11/08 ), followed by 5 mg daily. Will continue taking 5 mg daily which was his prior to admission dose for rheumatoid arthritis. * Spiriva 1 puff daily and Albuterol MDI 2 puffs Q4H PRN added to discharge medications. * Discharge home with physical therapy. #Atrial fibrillation: INR has improved to 2.65 today. Likely secondary to vitamin K deficiency in the setting of poor oral intake, with possible contribution from antibiotics. * Continue prior to admission metoprolol 12.5 mg PO BID. * Administer 2.5 mg of warfarin today. * Will check INR two days after discharge (11/07/16) and forward results to PCP. #Acute on chronic HFpEF: ECHO with LVEF estimated at 50-55% improved from prior LVEF 45%. * Follow up with data entry manager Dr. Scales within one week of discharge. * Resume home Lasix 40 mg PO BID on discharge. #Questionable aspiration: Reported episode of coughing after drinking. Successfully passed swallow eval today. * Continue regular consistency solids and liquids on discharge. Diet: Consistent Carbohydrate 3 with 2 g Na restriction DVT PPx: ALPs CODE: FULL CODE Problem List: 1. Acute bronchitis 2. Acute on chronic kidney failure 3. (HFpEF) heart failure with preserved ejection fraction 4. Supratherapeutic INR 5. T2DM (type 2 diabetes mellitus) Pain Ratin Pain Location: N/A Pain Goal: Remain pain free Pain Plan: Tylenol 650 mg PO Q6H Tomorrow's Labs & Rationales: None - patient is being discharged Discharge Plan Discharge Disposition: home Stable for Discharge? Yes Anticipated Discharge (Day): today
[2016-11-05 08:00] VITALS: BP 108/72
[2016-11-05] MEDS ORDERED: AUGMENTIN 875-1 EACH PO (08:45)
--- NOTE | 2016-11-05 10:03 | PN- Pulmonary ---
Subjective HPI/Critical Care Issues: Doing better Sputum with klebsiella and staph aureus Stable Mild wheezing Objective Current Medications: Current Medications Sig/Kenia Start time Last Medication Dose Route Stop Time Status Admin Acetaminophen 650 MG Q6P PRN 10/31 0330 AC 10/31 PO 1807 Albuterol Sulfate 3 ML TID 10/31 1600 AC 11/05 INH 0805 Amoxicillin/ 875 MG Q12 11/03 2200 AC 11/04 Clavulanate Potassium PO 2103 Furosemide 40 MG DAILY 11/04 1000 AC 11/04 PO 1005 Guaifenesin 10 ML Q6P PRN 10/31 0245 AC PO Insulin Aspart 0 TIDAC 10/31 0800 AC 11/05 SC 0823 Ipratropium [place] 2.5 ML TID 10/31 1600 AC 11/05 INH 0805 Levothyroxine Sodium 0.05 MG DAILY AC 11/02 0700 AC 11/05 PO 0613 Metoprolol Tartrate 12.5 MG BID 11/01 1000 AC 11/04 PO 2105 Patient Medication 1 UNIT ONE NR 11/04 0930 NE Teaching ED 11/04 1000 Pravastatin Sodium 20 MG 1700 10/31 1700 AC 11/04 PO 1626 Prednisone 20 MG DAILY 11/01 1000 AC 11/04 PO 11/05 1001 0856 Vital Signs & I&O Last 24 Hrs of Vitals and I&O: Vital Signs Date Time Temp Pulse Resp B/P Pulse O2 O2 Flow FiO2 Ox Delivery Rate 11/05 0856 96 Room Air Room Air 11/05 08 98.8 60 20 108/72 93 Room Air 11/04 2331 94 Room Air 11/04 233 97.2 61 18 100/60 94 Room Air 11/04 2104 61 100/60 11/04 2025 95 Room Air Room Air 11/04 1600 95 Room Air Room Air 11/04 1600 97.4 84 20 110/74 95 Room Air Room Air Intake & Output 11/05 1600 11/05 0800 11/05 0000 Intake Total 100 300 Output Total 125 275 Balance -25 25 Intake, Oral 100 300 Output, Urine 125 275 Impression/Plan Impression/Plan Impression/Plan: Physical Exam General Appearance Alert, Cooperative, Mild Distress Skin Chronic lower extremity skin changes HEENT Atraumatic, PERRLA, EOMI, Mucous Membr. moist/pink Neck Supple, +2 Carotid Pulse wo Bruit, Elevated JVD Cardiovascular Normal S1, Normal S2, Irregular rate Lungs Extensive rhonchi with bibasilar crackles Abdomen Normal Bowel Sounds, Soft, No Tenderness, No Hepatospenomegaly, No Masses Neurological Normal Tone, Cranial Nerves 3-12 NL Extremities 4+ bilateral lower extremity edema Vascular Normal Pulses, Pulses Symmetrical IMPRESSION This is an 89-year-old gentleman with history of reduced ejection fraction, atrial fibrillation, chronic venous insufficiency and previous [place], previous DVT PE with IVC filter with lower extremity swelling with appropriate INR on Coumadin, hypertension, hyperlipidemia, oqw-hwqwmpb-npajikuod diabetes, states 3 chronic kidney disease now has * Increasing cough wheezing sputum production with no significant hypoxemia in a gentleman suggestive of active bronchitis. [place] vs a small infiltrate. SPutum growing klebsiella and staph now on zunilda abx stable * REsolved hypotension since admission * Improved ef to 55 percent, (45 percent before) * Uzm-aknlrpu-rjdvraeox diabetes hence immunosuppressed * Thrombocytopenia which appears chronic but this needs to be monitored * Previous history of multiple renal cysts rule out any other cause of infection * Lower ext no sig dvt Recommendation * Po Augmentin for a total duration of abx for seven to 10 days * Prednisone 20 qd for total fo five days * Check blood pressures manually * Can dc on spiriva one puff daily and prn albuterol mdi 2 puff q 4
--- NOTE | 2016-11-05 10:44 | PN- Cardiology ---
Subjective Subjective: The patient reports that he is comfortable. He has had recent cough. No chest pain. No shortness of breath. No diaphoresis. Objective Vital Signs and I&Os Vital Signs Date Time Temp Pulse Resp B/P Pulse O2 O2 Flow FiO2 Ox Delivery Rate 11/05 0856 96 Room Air Room Air 11/05 0800 98.8 60 20 108/72 93 Room Air 11/04 2331 94 Room Air 11/04 2331 97.2 61 18 100/60 94 Room Air 11/04 2105 61 100/60 11/04 202 95 Room Air Room Air 11/04 1600 95 Room Air Room Air 11/04 1600 97.4 84 20 110/74 95 Room Air Room Air Intake & Output 11/05 1600 11/05 0800 11/05 0000 11/04 1600 11/04 0800 11/04 0000 Intake Total 100 300 400 60 12 Output Total 125 275 200 100 Balance -25 25 400 -140 -88 Intake, Oral 100 300 400 60 12 Number 1 1 0 Bowel Movements Output, Urine 125 275 200 100 Physical Exam: Gen: NAD HEENT: normal Lungs: clear to auscultation, normal resp. effort Heart: RRR, S1, S2, no murmurs Abdomen: Soft, nontender, no masses Extremities: 1+ edema Neuro: Alert and oriented x 3, cranial nerves intact Current Medications: Current Medications Sig/Kenia Start time Last Medication Dose Route Stop Time Status Admin Acetaminophen 650 MG Q6P PRN 10/31 0330 AC 10/31 PO 1807 Albuterol Sulfate 3 ML TID 10/31 1600 AC 11/05 INH 0805 Amoxicillin/ 875 MG Q12 11/03 2200 AC 11/05 Clavulanate Potassium PO 1029 Furosemide 40 MG DAILY 11/04 1000 AC 11/05 PO 1030 Guaifenesin 10 ML Q6P PRN 10/31 0245 AC PO Insulin Aspart 0 TIDAC 10/31 0800 AC 11/05 SC 0823 Ipratropium [place] 2.5 ML TID 10/31 1600 AC 11/05 INH 0805 Levothyroxine Sodium 0.05 MG DAILY AC 11/02 0700 AC 11/05 PO 0613 Metoprolol Tartrate 12.5 MG BID 11/01 1000 AC 11/05 PO 1030 Pravastatin Sodium 20 MG 1700 10/31 1700 AC 11/04 PO 1626 Prednisone 20 MG DAILY 11/01 1000 DC 11/05 PO 11/05 1001 1030 Results Last 48 Hrs of Labs/Mics: Laboratory Tests 11/05/16 0425: Anion Gap 6, Estimated GFR > 60, BUN/Creatinine Ratio 24.0, PT 27.6 H, INR 2.65 H, CBC w Diff NO MAN DIFF REQ, RBC 3.53 L, MCV 96.6 H, MCH 31.6 H, RDW 14.8 H, MPV 8.7, Gran % 74.9, Lymphocytes % 15.3 L, Monocytes % 9.3, Eosinophils % 0.3, Basophils % 0.2, Absolute Granulocytes 4.4, Absolute Lymphocytes 0.9 L, Absolute Monocytes 0.5, Absolute Eosinophils 0, Absolute Basophils 0, PUBS MCHC 32.7 L 11/04/16 0522: Anion Gap 10, Estimated GFR > 60, Glucose 123 H, Calcium 9.7, Phosphorus 3.5, Magnesium 2.2, Total Bilirubin 0.8, AST 41, ALT 65, Albumin 3.4 L, PT 34.2 H, INR 3.30 H, CBC w Diff NO MAN DIFF REQ, RBC 3.73 L, MCV 96.8 H, MCH 31.9 H, RDW 14.9 H, MPV 9.0, Gran % 74.3, Lymphocytes % 16.7 L, Monocytes % 8.5, Eosinophils % 0.2, Basophils % 0.3, Absolute Granulocytes 5.2, Absolute Lymphocytes 1.2, Absolute Monocytes 0.6, Absolute Eosinophils 0, Absolute Basophils 0, PUBS MCHC 32.9 L Assessment/Plan Assessment/Plan Assessment: 1. Acute bronchitis/pneumonia, improving 2. Hypotension, improved 3. Anticoagulated on warfarin. Elevated INR, now in therapeutic range\ 4. Acute on chronic HFpEF, improved 5. Diabetes mellitus 6. Acute on chronic renal insufficiency, resolved DANIELLA: * Follow pulmonary recommendations * Continue oral Lasix * Continue cardiac medications. * Swallowing evaluation * Would dose warfarin with 2.5 mg today * Possible discharge if swallowing evaluation is favorable. * He will need an INR check in 2-3 days after discharge. Continue telemetry? Not applicable
[2016-11-05] MEDS ORDERED: SPIRIVA18 MCG INH (11:22)
[2016-11-05] MEDS ORDERED: PROVENTIL HFA6.7 GM INH (11:25)
[2016-11-05] MEDS ORDERED: PREDNISONE5 M1 PO (11:32)
--- NOTE | 2016-11-05 13:55 | Discharge Summary ---
Visit Information Visit Dates Admission Date: 10/30/16 Discharge Date: 11/05/16 Hospital Course Course Attending Physician: OBI VENTURA MD Primary Care Physician: JULIETH NEW MD Other Care Providers: Class C Truck Driver Garrett Scales MD Can Washer Obi Menard MD Hospital Course: Mr. Tellez is a 89 y/o M with PMHx of CHF, atrial fibrillation on warfarin, DVT/PE s/p IVC filter and rheumatoid arthritis who presented with fever, chills and productive cough x 3 days, associated with generalized weakness, decreased oral intake and sore throat. On initial presentation, vitals were remarkable for low- grade fever with Tmax 100.2. He was satting around 95% on room air. Although patient was hemodynamically stable initially, within a few hours blood pressure dropped down to 76/38 and heart rate increased to 100. Physical exam was remarkable for extensive rhonchi scattered throughout bilateral lung meyer and bibasilar crackles. Labs revealed WBC 6.5 with no bands, H/H 11.9/36, platelet count 95, BUN/Cr 34/1.5, lactic acid 2.6 (later improved to 1.2 with fluid resuscitation), proBNP 9550, troponin 0.44 and INR 2.76. Rapid flu, urinary Strep pneumo and Legionella antigen were negative. CXR was unremarkable except for possible mild congestive heart failure and was negative for dense consolidation. Patient was fluid resuscitated with 4 L of normal saline with improvement of blood pressures and given azithromycin and ceftriaxone. Femoral line was inserted due to concern for impending hemodynamical instability. He was admitted to the ICU for closer hemodynamic monitoring and anticipated need for vasopressors. Below were the issues that were addressed during current presentation: #Acute bronchitis: Although patient's initial presentation was deemed secondary to sepsis given reported fevers and chills as well as hypotension and lactic acidosis, later it was felt that there was no convincing evidence to call this episode sepsis, supported by the fact that patient did not fit SIRS criteria. Patient's current presentation with cough, fever and no hypoxemia on room air was attributed to acute bronchitis in the absence of clinical evidence for pneumonia. Patient was continued on azithromycin and ceftriaxone for a total of 3 days (10/30/16-11/01/16) and later switched to Ceftin (11/02/16-11/03/16), followed by Augmentin (11/03/16-11/05/16). Sputum Cx grew Klebsiella pneumoniae sensitive to cefazolin and Augmentin and MSSA sensitive to all antibiotics tested. Patient received 5 days of prednisone 20 mg as well as TRC and nebulizer treatment. Throughout his hospital course, patient showed significant clinical improvement including improvement or oral intake and wheezing. CT Chest W/O IV Contrast was later performed which showed opacity in the right lower lobe, suspicious for atelectasis or small infiltrate. * On discharge, patient had a single remaining dose of his 7-day course of Augmentin which he was instructed to take on the evening of discharge. * Patient was discharged on prednisone taper: 10 mg daily for 3 more days, followed by 5 mg daily which he will continue indefinitely since it was his prior to admission dose for rheumatoid arthritis. * Patient will start using Spiriva 1 puff daily and Albuterol MDI 2 puffs Q4H PRN after discharge. #HFpEF: Patient was significant volume overloaded on admission secondary to the IV fluids that he had received. Fluids were discontinued once blood pressure improved. ECHO was performed which showed LVEF estimated at 50-55% improved from prior LVEF of 45%. Patient was instructed to continue her prior to admission Lasix 40 mg PO BID on discharge. #Supratherapeutic INR: Patient's INR gradually uptrended to a maximum of 3.85 during the first several days of admission despite holding warfarin. This was felt to be secondary to vitamin K deficiency and antibiotic therapy. INR later started trending down and warfarin was resumed on the day of discharge when INR came down to less than 3. * Patient will continue her prior to admission regimen of 2.5 mg of warfarin on Saturday, Saturday and and 5 mg of warfarin on Saturday, , Saturday and Saturday with regular monitoring of INR levels. He was instructed to have his INR checked two days after discharge. #NOELLE: This was most likely pre-renal in etiology with improvement of creatinine back to baseline of around 1 with IV fluid hydration. Allergies: Coded Allergies: latex (Mild, RASH 12/02/15) Disposition Summary Disposition Principal Diagnosis: Acute bronchitis Additional Diagnosis: HFpEF Supratherapeutic INR NOELLE Discharge Disposition: home health services Discharge Instructions General Discharge Information Code Status: Full Code Patient's Diet: Diabetic (no added salt) Patient's Activity: As tolerated with assistance Follow-Up Instructions/Appts: Please follow up with your primary care physician Dr. New and machine feeder raw stock Dr. Scales within one week of discharge. Do not take warfarin today. Resume starting tomorrow. Please have your INR checked on 11/07/2016 and forward results to Dr. New. Medications at Discharge Discharge Medications: Stop taking the following medications: Prednisone (Prednisone) 5 MG TAB.DS.PK Continue taking these medications: Furosemide (Furosemide) 40 MG TABLET 1 Tablet ORAL TWICE DAILY Comments: Last Taken: 11/05/16 Time: 1000 Levothyroxine Sodium (Synthroid) 50 MCG TABLET 1 Tablet ORAL DAILY Comments: Last Taken: 11/05/16 Time: 0600 Potassium Chloride (Potassium Chloride) 10 MEQ CAPSULE.ER Comments: Last Taken: 11/04/16 Time: 1000 Pravastatin Sodium (Pravachol) 20 MG TABLET Comments: Last Taken: 11/04/16 Time: 1700 Vitamin B Complex, Iron, And11 (Feogen) (Unknown Strength) SGL Unknown Dose ORAL DAILY Comments: PER PT MED LIST Linagliptin (Tradjenta) 5 MG TABLET Comments: Last Taken: NOT GIVEN IN HOSPITAL Time: COVERED WITH INSULIN INJECTIONS IN LIEU OF [Prinivil] 2.5 Milligram ORAL DAILY Days = 30 Instructions: 1 TAB DAILY Comments: Last Taken: NOT GIVEN IN HOSP Time: Warfarin Sodium (Coumadin) 5 MG TABLET 1 Tablet ORAL SATURDAY, SATURDAY, SATURDAY Comments: Last Taken: NOT GIVEN IN HOSP Time: Warfarin Sodium (Coumadin) 5 MG TABLET 1 Tablet ORAL EVERY SATURDAY Comments: Last Taken: NOT GIVEN IN HOSP Time: Metoprolol Tartrate (Metoprolol Tartrate) 25 MG TABLET 0.5 Tablet ORAL TWICE DAILY Comments: Last Taken: 11/05/16 Time: 1000 Warfarin Sodium (Coumadin) 2.5 MG TABLET 1 Tablet ORAL SATURDAY, SATURDAY AND SATURDAY Start taking the following new medications: Prednisone (Prednisone) 5 MG TABLET 1 Tablet ORAL DAILY Qty = 40 No Refills Instructions: On Take 11/06-11/08 2 tabs per day 11/09- 1 tab per day Then Continue Taking 1 tab per day Comments: Last Taken: 11/05/16 Time: 1000 Amoxicillin/Potassium Clav (Augmentin 875-125 Tablet) 875 MG-125 MG TABLET 1 Tablet ORAL TWICE DAILY Qty = 1 No Refills Tiotropium [place] (Spiriva) 18 MCG CAP.W.DEV 1 PUFF Inhale through mouth DAILY Qty = 30 No Refills Albuterol Sulfate (Proventil Hfa) 90 MCG HFA.AER.AD 2 Puff Inhale through mouth 4 TIMES A DAY as needed for SHORTNESS OF BREATH Qty = 1 No Refills Copies To: SHAQ DALTON,JULIETH; ADAMA DALTON,Thang ARROYO
[2017-02-07] MEDS ORDERED: LISINOPRIL2.5 M1 PO (17:31)
[2017-02-07] MEDS ORDERED: HYDROCODON-ACE1 EAC2 PO (17:35)
[2017-02-07] MEDS ORDERED: IRON325 M3 PO (17:35)
[2017-02-07] MEDS ORDERED: VITAMIN B-121000 MC3 PO (17:35)
[2017-02-12] MEDS ORDERED: FUROSEMIDE40 M1 PO ×2 (10:12→10:27)
[2017-02-12] MEDS ORDERED: COUMADIN2 M1 PO ×2 (10:13→10:27)
== END 2016-11-05 14:10 | disposition home health service (06) | DRG 291 ==
LOC: ENRESERVTM → ENRESERVDT → ERH 21:07 → CRI 23:42 → ERHI 23:42 → CRI 23:42
PROVIDERS: Dermatology; Internal Medicine; Physician Assistant; Specialist; ADMIT Internal Medicine Cardiovascular Disease
DX: I13.0 Hypertensive heart and chronic kidney disease with heart failure and stage 1 through stage 4 chronic kidney disease, or unspecified chronic kidney disease (principal); I50.33 Acute on chronic diastolic (congestive) heart failure; N17.9 Acute kidney failure, unspecified; I95.9 Hypotension, unspecified; D69.6 Thrombocytopenia, unspecified; N18.3 Chronic kidney disease, stage 3 (moderate); J20.9 Acute bronchitis, unspecified; I48.91 Unspecified atrial fibrillation; E11.9 Type 2 diabetes mellitus without complications; Z79.01 Long term (current) use of anticoagulants; Z79.84 Long term (current) use of oral hypoglycemic drugs; I87.2 Venous insufficiency (chronic) (peripheral); E78.5 Hyperlipidemia, unspecified; I25.10 Atherosclerotic heart disease of native coronary artery without angina pectoris; E03.9 Hypothyroidism, unspecified; M11.20 Other chondrocalcinosis, unspecified site; Z87.891 Personal history of nicotine dependence
CPT/HCPCS: 84133; 84300; 87184; CCU; ERO; 36415; 81001; 81003; 82436; 82570; 87040; 87070; 87147; 87449; 87450; 87804; 87804-59; 93005; 93010; 93306; 93970; 96361; 96374; 96375; 97110-GO; 97116-GO; 97161-GP; 97530-GO; 99291; J0131; J0456; J0696; J1940; J3490; J7040; J7060